=== PATIENT | female | born 1945 | race Caucasian/White ===

== ENCOUNTER 2024-05-01 13:15 | Emergency (ER) | payer MEDICARE, OTHER, SELFPAY ==
[2024-05-01] VITALS (14 sets, daily range): BP systolic 125–172; BP diastolic 58–82; PULSE 36–91; RESP 12–34; O2SAT 92–99; BMI 29.9
--- NOTE | 2024-05-01 13:51 | EKG_ITS ---
[facility] [address] [place] [address] Test Date: 2024-05-01 Pat Name: Thea Jc Department: [facility] Room: Gender: Female Biomedical Analytical Scientist: RICHIE : 1945 Requested By: Order Number: [id number] Reading MD: Deni Feliz Measurements Intervals [place] Rate: 57 P: [place]: QRS: 41 QRSD: 104 T: 9 QT: 444 QTc: 432 Interpretive Statements atrial fibrillation with slow ventricular response and PAC Nonspecific ST abnormalities No prior tracings Electronically Signed On 05-03-2024 17:55:10 PDT by Deni Feliz
--- NOTE | 2024-05-01 13:51 | DI.RAD.S_ITS ---
PROCEDURE: XR CHEST 1V INDICATIONS: chest pain TECHNIQUE: One view of the chest was acquired. COMPARISON: None. FINDINGS: Surgical changes and devices: Tendon anchors are overlying the right shoulder. Lungs and pleura: Lungs are clear. No pleural effusions or pneumothorax. Mediastinum: Mediastinal contours appear normal. Heart size is enlarged. Bones and chest wall: No suspicious bony lesions. Overlying soft tissues appear unremarkable. IMPRESSION: No acute pulmonary process. Dictated by: Paulette Archuleta M.D. on 05/01/2024 at 14:21 Approved by: Paulette Archuleta M.D. on 05/01/2024 at 14:22
[2024-05-01 14:15] LABS: Add Manual Diff / Slide Review NO; Basophils Absolute Auto 0 /uL (0-100); Basophils Percent Auto 0.4 % (0-2); Eosinophils Absolute Auto 0 /uL (0-450); Eosinophils Percent Auto 0.4 % (2-4); Hematocrit 44.7 % (36-46); Hemoglobin 15.1 g/dL (12.0-16.0); Lymphocytes Absolute Auto 1300 /uL (1100-4500); Lymphocytes Percent Auto 15.6 % (25-40); Mean Corpuscular HGB Conc 33.8 % (30-36); Mean Corpuscular Hemoglobin 30.5 PG (26-34); Mean Corpuscular Volume 90.1 fL (80-100); Monocytes Absolute Auto 900 /uL (0-900); Monocytes Percent Auto 11.4 % (3-14); Neutrophils Absolute Auto 6000 /uL (1500-7000); Neutrophils Percent Auto 72.2 % (50-75); Platelet Count 364 X10^3/uL (150-400); Red Blood Cell Count 4.96 X10^6/uL (4.0-5.2); Red Cell Distribution Width 14.4 % (11.6-14.8); White Blood Cell Count 8.3 X10^3/uL (4.5-11.0)
--- NOTE | 2024-05-01 14:16 | ED.WEAKNESS ---
HPI - Weakness General Chief complaint: Weakness Stated complaint: Fall, muscle weakness, shaking, slurred speech Time Seen by Provider: 05/01/24 14:11 History of Present Illness HPI Narrative: Patient is an 79-year-old female without any significant past medical history comes into the ED for evaluation of diffuse weakness as well as dizziness. States that today she was seated on the toilet was able to urinate and move her bowels attempted to stand up felt lightheaded dizzy had to sit back down onto the toilet lowered herself onto the floor did not strike her head not on any blood thinners no actual LOC. States that she was too weak to get up from that position therefore called the ambulance. Family at bedside states that patient does live at home alone, states that she had complained of similar symptoms a few days ago and never seek medical attention. Patient at this time is not complaining of any symptoms just feels a little ?weak. Daughter was also stating that she was thinking that the patient was slurring her speech when she 1st saw her this was earlier this morning, greater than 5 hours ago. Therefore patient does not meet tPA requirement. At time of initial evaluation patient NIH of 0 no focal deficits. Related Data Allergies Allergy/AdvReac Type Severity Reaction Status Date / Time Penicillins Allergy Severe Rash Verified 05/01/24 15:09 cephalexin Allergy Unknown Verified 05/01/24 15:09 diazepam Allergy Unknown Verified 05/01/24 15:09 esomeprazole Allergy Unknown Verified 05/01/24 15:09 lamotrigine Allergy Unknown Verified 05/01/24 15:09 lisinopril Allergy Unknown Verified 05/01/24 15:09 Review of Systems Review of Systems Narrative: General: Positive generalized weakness HEENT: Denies headache, eye drainage, eye irritation, head trauma, sore throat, voice change Cardiovascular: Denies any chest pain, palpitations, shortness of breath, tachycardia Respiratory: Denies any shortness of breath, cough, wheeze, stridor GI/: Denies any abdominal pain, nausea, vomiting, diarrhea, bright red blood per rectum, melanotic stools, urinary frequency, urinary retention, dysuria, hematuria MSK: Denies any joint pain, muscle pains, swelling Skin: Denies any rashes, lesions, discoloration Neuro: Positive lightheadedness, dizziness, Denies any headache, fainting, weakness Psych: Denies SI/HI Patient History Social History Smoking Status: Never smoker Smoking Status: Never smoker Substance Use Type: does not use Exam Narrative Exam Narrative: General: Cooperative, comfortable, well-developed, not in acute distress HEENT: Normocephalic, atraumatic, PERRLA, normal sclera, eyelids normal, Neck: Active full range of motion, atraumatic Chest: Normal to inspection, negative crepitus, no overlying erythema ecchymosis Respiratory: Normal respiratory effort, not in acute respiratory distress, clear to auscultation bilaterally negative cough, wheeze, tachypnea, rhonchi, rales Cardiology: Regular rate rhythm negative gallop, murmur, rubs GI/: Normal to inspection, soft, nonrigid, no tenderness to palpation, exam deferred MSK: Full range of active range of motion of all 4 extremities, atraumatic Skin: No rashes lesions noted Neuro: Alert awake oriented x3, moves all 4 extremities spontaneously, cranial nerves intact, able to answer all questions appropriately follows commands appropriately, NIH of 0 focal deficits Psych: Cooperative, negative suicidal or homicidal ideations Initial Vital Signs Initial Vital Signs: Vital Signs Pulse Rate 66 05/01/24 13:32 Respiratory Rate 16 05/01/24 13:32 Blood Pressure 172/72 H 05/01/24 13:32 Pulse Oximetry 97 05/01/24 13:32 Oxygen Delivery Method Room Air 05/01/24 13:32 Course Orders Ordered: ED Orders 05/01/24 13:51 XR chest 1V Stat EKG-12 Lead Stat 05/01/24 14:04 Complete Blood Count AUTO DIFF Stat Comprehensive Metabolic Panel Stat Lipase Stat Magnesium Stat NT-proBNP (BNP-Adult 18+) Stat PTT Partial Thromboplastin Justin Stat Prothrombin Time INR Stat TSH [Thyroid Stimulating Hormone] Stat Troponin & CK Cardiac Panel Stat 05/01/24 14:17 CT angio head and neck Stat CT head/brain wo con Stat 05/01/24 14:43 EKG-12 Lead Stat 05/01/24 14:45 EKG-12 Lead Stat 05/01/24 15:20 Lactate (Lactic Acid) Stat Discontinued Medications Sodium Chloride (Normal Saline 0.9%) 1,000 mls @ 500 mls/hr IV BOLUS ONE Stop: 05/01/24 16:16 Last Admin: 05/01/24 15:38 Dose: 500 mls/hr Documented By: DELORES Magnesium Sulfate (Magnesium Sulfate) 2 gm in 50 mls @ 150 mls/hr IV NOW ONE Stop: 05/01/24 14:50 Last Infusion: 05/01/24 15:36 Dose: Infused Documented By: DELORES Co-signed By: NEYDA Admin: 05/01/24 15:02 Dose: 150 mls/hr Documented By: JEAN Co-signed By: DELORES Vital Signs Vital signs: Vital Signs - 8 hr 05/01/24 13:32 05/01/24 14:03 05/01/24 14:30 Pulse Rate 66 91 H 42 L Respiratory Rate 16 27 H 26 H Blood Pressure 172/72 H 154/74 H 125/58 L Pulse Oximetry 97 99 98 Oxygen Delivery Method Room Air 05/01/24 15:08 05/01/24 15:30 05/01/24 15:41 Pulse Rate 51 L 49 L 52 L Respiratory Rate 16 22 Blood Pressure 132/59 L Pulse Oximetry 98 98 97 Oxygen Delivery Method Room Air Room Air 05/01/24 15:41 05/01/24 16:00 05/01/24 16:00 Pulse Rate 36 L Respiratory Rate 20 Blood Pressure 132/63 126/62 Pulse Oximetry 95 Oxygen Delivery Method 05/01/24 16:15 05/01/24 16:25 05/01/24 16:25 Pulse Rate 39 L 49 L Respiratory Rate 15 Blood Pressure 141/65 H Pulse Oximetry 97 Oxygen Delivery Method 05/01/24 16:30 05/01/24 16:30 05/01/24 17:00 Pulse Rate 46 L 59 L Respiratory Rate 16 34 H Blood Pressure 157/70 H Pulse Oximetry 98 96 Oxygen Delivery Method 05/01/24 17:00 Pulse Rate Respiratory Rate Blood Pressure 142/82 H Pulse Oximetry Oxygen Delivery Method MDM - Weakness Differential Diagnosis Differential diagnosis: Likely acute myocardial infarction, hypothyroidism, sepsis, dehydration and other (Arrhythmia) Lab Data 05/01/24 14:04 05/01/24 14:04 Labs: Lab Results 05/01/24 05/01/24 Range/Units 14:04 15:20 WBC 8.3 (4.5-11.0) X10^3/uL RBC 4.96 (4.0-5.2) X10^6/uL Hgb 15.1 (12.0-16.0) g/dL Hct 44.7 (36-46) % MCV 90.1 (80-100) fL MCH 30.5 (26-34) PG MCHC 33.8 (30-36) % RDW 14.4 (11.6-14.8) % Plt Count 364 (150-400) X10^3/uL Neut % (Auto) 72.2 (50-75) % Lymph % (Auto) 15.6 L (25-40) % Bowie % (Auto) 11.4 (3-14) % Eos % (Auto) 0.4 L (2-4) % Baso % (Auto) 0.4 (0-2) % Neut # (Auto) 6000 (9483-9808) /uL Lymph # (Auto) 1300 (1271-9331) /uL Bowie # (Auto) 900 (0-900) /uL Eos # (Auto) 0 (0-450) /uL Baso # (Auto) 0 (0-100) /uL PT 10.4 (9.4-12.5) SECONDS INR 0.9 (0.9-1.3) APTT 42 H (25.1-36.5) SECONDS Sodium 138 (137-145) mmol/L Potassium 4.1 (3.4-5.1) mmol/L Chloride 103 (98-107) mmol/L Carbon Dioxide 26 (22-32) mmol/L BUN 16 (7-17) mg/dL Creatinine 0.76 (0.52-1.04) mg/dL Estimated GFR > 60 (>60) mL/min BUN/Creatinine Ratio 21.1 (6-22) Glucose 105 (80-110) mg/dL Lactate 1.5 (0.7-2.1) mmol/L Calcium 9.8 (8.4-10.2) mg/dL Magnesium 2.2 (1.6-2.3) mg/dL Total Bilirubin 0.4 (0.2-1.3) mg/dL AST 35 (14-36) IU/L ALT 24 (<35) IU/L Alkaline Phosphatase 67 (38-126) U/L Total Creatine Kinase 135 (30-135) U/L Troponin I 0.012 (0.01-0.034) ng/mL NT-Pro-B Natriuret Pep 4210 H (<450) pg/mL Total Protein 7.1 (6.3-8.2) g/dL Albumin 4.2 (3.5-5.0) g/dL Globulin 2.9 (1.7-4.1) g/dL Albumin/Globulin Ratio 1.4 (1.0-2.8) Lipase 46 (23-300) U/L TSH 1.56 (0.47-4.68) uIU/mL Urine Dip Bedside Urine Glucose Negative Bedside Urine Bilirubin - Negative Bedside Urine Ketone - Negative Urine Specific [place] 1.010 Bedside Urine Occult Blood - Negative Bedside Urine pH 6.0 Bedside Urine Protein - Negative Bedside Urine Urobilinogen - Negative Bedside Urine Nitrite - Negative Bedside Urine Leukocytes - Negative Esterase Imaging Data Chest x-ray: Radiologist Impression: [place] [address] XRay Report Signed Patient: Thea Jc MR#: [id number] : 1945 Acct:[id number] Age/Sex: 79 / F Date of Service: 05/01/24 Loc: ED Accession Number: [id number] Procedure: XR chest 1V Ordering Provider: Deni Mcdaniels D.O. PROCEDURE: XR CHEST 1V INDICATIONS: chest pain TECHNIQUE: One view of the chest was acquired. COMPARISON: None. FINDINGS: Surgical changes and devices: Tendon anchors are overlying the right shoulder. Lungs and pleura: Lungs are clear. No pleural effusions or pneumothorax. Mediastinum: Mediastinal contours appear normal. Heart size is enlarged. Bones and chest wall: No suspicious bony lesions. Overlying soft tissues appear unremarkable. IMPRESSION: No acute pulmonary process. CT scan - head: Radiologist Impression: [place] [address] CT Scan Report Signed Patient: Thea Jc MR#: [id number] : 1945 Acct:[id number] Age/Sex: 79 / F Date of Service: 05/01/24 Loc: ED Accession Number: [id number] Procedure: CT head/brain wo con Ordering Provider: Deni Mcdaniels D.O. PROCEDURE: CT HEAD/BRAIN WO CON INDICATIONS: light headed / dizzy TECHNIQUE: Noncontrast 4.5 mm thick angled axial sections acquired from the foramen magnum to the vertex, with coronal and sagittal reformats. For radiation dose reduction, the following was used: automated exposure control, adjustment of mA and/or kV according to patient size. COMPARISON: None. FINDINGS: Image quality: Diagnostic. CSF spaces: Basal cisterns are patent. No extra-axial fluid collections. The ventricles are symmetric in size and shape. Brain: No intracranial bleeds or masses. There is cerebral volume loss for age, with resultant ventricular and sulcal prominence. There are periventricular and deep white matter chronic small vessel ischemic changes. There is intracranial internal carotid artery atherosclerosis. Skull and face: Calvarium and visualized facial bones appear intact, without suspicious lesions. Sinuses: Visualized sinuses and mastoids are clear. IMPRESSION: 1. No acute intracranial process. 2. Moderate atrophy and chronic microvascular ischemic changes. CTA - brain/neck: Radiologist Impression: PROCEDURE: CT ANGIO HEAD AND NECK INDICATIONS: light headed / dizzy TECHNIQUE: After the administration of intravenous contrast, 1 mm thick sections acquired from the aortic arch through the [place] of [place]. 3-dimensional rpfysix-ugwaitiei-rgunrqecha (MIP) and/or volume rendering reformats were acquired of the central intracranial vasculature and neck separately. For radiation dose reduction, the following was used: automated exposure control, adjustment of mA and/or kV according to patient size. COMPARISON: [facility], CT, CT HEAD/BRAIN WO CON, 05/01/2024, 14:53. FINDINGS: Image quality: Diagnostic. BRAIN: See separately dictated CT brain report of 05/01/2024. HEAD CT ANGIOGRAPHY: Anterior circulation: Intracranial internal carotid arteries are normal in size and flow. The flow within the paired anterior cerebral arteries is normal and symmetric. The flow within the middle cerebral arteries is normal and symmetric. The anterior communicating artery is seen. No aneurysms are seen. Posterior circulation: Vertebral arteries are codominant. Visualized portions of the vertebral arteries demonstrate normal caliber, and join to form a normal appearing basilar artery. Flow within the posterior cerebral arteries is normal and symmetric. No aneurysms are seen. NECK CT ANGIOGRAPHY: Carotid system: The great vessels demonstrate a conventional anatomy as they arise from the aortic arch. The origins of the common carotid arteries appear patent. The common carotid arteries demonstrate normal caliber and courses. The bifurcation regions are both widely patent. The internal carotid arteries demonstrate normal calibers and courses. Posterior circulation: The origins of the vertebral arteries both appear widely patent. The more superior extracranial portions of both vertebral arteries also demonstrate normal courses and calibers. They join to form a normal appearing basilar artery. Soft tissues: Visualized neck soft tissues demonstrate no suspicious abnormalities. Bones: No suspicious bony lesions. Visualized cervical spine appears normally aligned. IMPRESSION: No significant intracranial arterial abnormality is seen. No significant abnormality is seen within the arteries of the neck. MDM Narrative Medical decision making narrative: Patient is an 79-year-old female with no significant past medical history presents to the ED for multiple complaints. States that she has been feeling lightheaded dizzy over the past few days states that it is happening whenever she is moving/changing positions. The last time was earlier this morning when she was sitting on the toilet stood up felt lightheaded dizzy did not fall was able to sit down onto the floor. Daughter states that when she arrived she noticed that the patient seemed a little confused was worried that she might have low blood sugars despite no history of diabetes give her some orange juice and states that the patient was with resolved symptoms. Patient at time of initial evaluation NIH of 0 no focal deficits feeling just ?weak.Lab work is remarkable for an elevated BNP of 4210, however patient clinically not in fluid overload, given patient bradycardic and normotensive at this time we will hold off on any Lasix/diuresis. 1431: Reviewed patient's EKG appears to be possible AFib with PVC bradycardic or possible third-degree, given patient's symptomatic with weakness and presyncopal symptoms will reach out to Cardiology, 2 g Mag ordered 1500: Discussed case with Dr. Britton of cardiology who personally reviewed the EKG, states that it is a junction rythm, would not state that it is a third-degree heart block or atrial fibrillation, states that given patient's symptoms should be admitted /transferred to a hospital with electrophysiology for possible pacemaker placement, does not recommend any additional interventions at this time. 1727: Had a discussion with Dr. Hoffman, clothing pattern preparer at [facility] who reviewed the case and agrees about need for necessity to transfer for cardiac evaluation, echo and possible pacemaker. States to call the hospitalist for admission 1750: Had a discussion with Dr. Sanchez, hospitalist at [facility] who accepts the admission Discharge Plan Departure Patient Disposition: [facility] Clinical Impression: Symptomatic bradycardia, Elevated brain natriuretic peptide (BNP) level, Syncope Referrals: Miscellaneous,DoctorMD [Primary Care Provider] -
[2024-05-01 14:20] LABS: INR 0.9 (0.9-1.3); Prothrombin Time 10.4 SECONDS (9.4-12.5)
[2024-05-01 14:23] LABS: PTT Partial Thromboplastin Tim 42 SECONDS (25.1-36.5)
[2024-05-01 14:27] LABS: Alanine Aminotransferase 24 IU/L (<35); Albumin 4.2 g/dL (3.5-5.0); Albumin Globulin Ratio 1.4 (1.0-2.8); Alkaline Phosphatase 67 U/L (38-126); Aspartate Aminotransferase 35 IU/L (14-36); BUN Creatinine Ratio 21.1 (6-22); Bilirubin Total 0.4 mg/dL (0.2-1.3); Blood Urea Nitrogen 16 mg/dL (7-17); Calcium 9.8 mg/dL (8.4-10.2); Carbon Dioxide 26 mmol/L (22-32); Chloride 103 mmol/L (98-107); Creatine Kinase 135 U/L (30-135); Estimated Glomerular Filt Rate > 60 mL/min (>60); Globulin 2.9 g/dL (1.7-4.1); Glucose 105 mg/dL (80-110); HEMOLYSIS < 15 (0-50); Lipase 46 U/L (23-300); Magnesium 2.2 mg/dL (1.6-2.3); Potassium 4.1 mmol/L (3.4-5.1); Sodium 138 mmol/L (137-145); Total Protein 7.1 g/dL (6.3-8.2)
[2024-05-01 14:39] LABS: NT-proBNP (BNP-Adult 18+) 4210 pg/mL (<450); Troponin I 0.012 ng/mL (0.01-0.034)
--- NOTE | 2024-05-01 14:43 | EKG_ITS ---
[address] [address] Test Date: 2024-05-01 Pat Name: Thea Jc Department: Room: Gender: Female Kettle Hand: JUAN CARLOS MATTHEWS : 1945 Requested By: Order Number: [id number] Reading MD: Deni Feliz Measurements Intervals [place] Rate: 42 P: [place]: QRS: 36 QRSD: 94 T: -7 QT: 448 QTc: 374 Interpretive Statements Junctional bradycardia ST & T wave abnormality, consider inferior ischemia Electronically Signed On 05-03-2024 17:57:22 PDT by Deni Feliz
--- NOTE | 2024-05-01 14:45 | EKG_ITS ---
[address] [address] Test Date: 2024-05-01 Pat Name: Thea Jc Department: Room: Gender: Female Web Editor: JUAN CARLOS MATTHEWS : 1945 Requested By: Order Number: [id number] Reading MD: Deni Feliz Measurements Intervals [place] Rate: 41 P: [place]: QRS: 40 QRSD: 96 T: 9 QT: 458 QTc: 377 Interpretive Statements Junctional bradycardia Electronically Signed On 05-03-2024 17:57:31 PDT by Deni Feliz
[2024-05-01] MEDS: MAGNESIUM SULFATE 2 GM/50 ML PIGGYBACK IV (15:02)
[2024-05-01 15:38] LABS: Lactate (Lactic Acid) 1.5 mmol/L (0.7-2.1)
[2024-05-01] MEDS: SODIUM CHLORIDE 0.9% 1,000 ML 500 ML IV (15:38)
--- NOTE | 2024-05-01 15:50 | PC.NURSE ---
Purwick cath placed on patient
--- NOTE | 2024-05-01 15:53 | PC.NURSE ---
pt took her lamotrigine 150 mg tabs x 2.
[2024-05-01 16:10] LABS: Thyroid Stimulating Hormone 1.56 uIU/mL (0.47-4.68)
--- NOTE | 2024-05-01 17:59 | PC.NURSE ---
Kaitlyn Cox (friend) main point of contact for patient. [phone]
--- NOTE | 2024-05-01 18:50 | PC.NURSE ---
Report to Chevy DEL RIO. Attempted report to overlake, will call back
--- NOTE | 2024-05-01 21:50 | PC.NURSE ---
this RN gave report to Sandrita at [facility].
== END 2024-05-01 18:50 | disposition short-term general hospital (02) ==
PROVIDERS: Emergency Provider Student in an Organized Health Care Education/Training Program
DX: R00.1 Bradycardia, unspecified (principal); R79.89 Other specified abnormal findings of blood chemistry; R55 Syncope and collapse; R07.9 Chest pain, unspecified; R47.81 Slurred speech
CPT/HCPCS: 36415; 70450; 70496; 70498; 71045; 80053; 81003; 82550; 83605; 83690; 83735; 83880; 84443; 84484; 85025; 85610; 85730; 93005; 96360; 96361; 99285; J3475; Q9967

== ENCOUNTER 2024-05-06 18:55 | Emergency (ER) | payer MEDICARE, OTHER, SELFPAY ==
[2024-05-06] VITALS (13 sets, daily range): BP systolic 123–201; BP diastolic 58–89; PULSE 60–62; RESP 14–25; TEMP 36.4; O2SAT 93–97; BMI 30.1
--- NOTE | 2024-05-06 19:09 | DI.RAD.S_ITS ---
PROCEDURE: XR CHEST 1V INDICATIONS: fall, pacemaker placement TECHNIQUE: One view of the chest was acquired. COMPARISON: [facility], , XR CHEST 1V, 05/01/2024, 13:50. FINDINGS: Surgical changes and devices: Left chest wall pacemaker. Lungs and pleura: Lungs are clear. No pleural effusions or pneumothorax. Mediastinum: Mediastinal contours appear normal. Heart size is enlarged. Bones and chest wall: No suspicious bony lesions. Overlying soft tissues appear unremarkable. IMPRESSION: Left chest wall pacemaker. No acute cardiopulmonary abnormality is seen. Dictated by: Chepe Beckford M.D. on 05/06/2024 at 19:56 Approved by: Chepe Beckford M.D. on 05/06/2024 at 19:57
--- NOTE | 2024-05-06 19:21 | EKG_ITS ---
[address] [address] Test Date: 2024-05-06 Pat Name: Thea Jc Department: [facility] Room: Gender: Female Auction Block Clerk: : 1945 Requested By: Order Number: [id number] Reading MD: Kenny Burris Measurements Intervals [place] Rate: 60 P: -13 GA: 190 QRS: 19 QRSD: 96 T: 23 QT: 422 QTc: 422 Interpretive Statements Atrial-paced rhythm Electronically Signed On 05-08-2024 15:48:57 PDT by Kenny Burris
--- NOTE | 2024-05-06 19:23 | EKG_ITS ---
[address] [address] Test Date: 2024-05-06 Pat Name: Thea Jc Department: [facility] Room: Gender: Female Mail Order Clerk: : 1945 Requested By: Order Number: [id number] Reading MD: Kenny Burris Measurements Intervals [place] Rate: 61 P: 12 TN: 194 QRS: 17 QRSD: 94 T: 27 QT: 424 QTc: 426 Interpretive Statements Atrial-paced rhythm Electronically Signed On 05-08-2024 15:49:03 PDT by Kenny Burris
--- NOTE | 2024-05-06 19:32 | DI.CT.S_ITS ---
PROCEDURE: CT HEAD/BRAIN WO CON INDICATIONS: GLF, dizzy, age 80s TECHNIQUE: Noncontrast 4.5 mm thick angled axial sections acquired from the foramen magnum to the vertex, with coronal and sagittal reformats. For radiation dose reduction, the following was used: automated exposure control, adjustment of mA and/or kV according to patient size. COMPARISON: [facility], CT, CT HEAD/BRAIN WO CON, 05/01/2024, 14:53. FINDINGS: Image quality: Diagnostic. CSF spaces: Basal cisterns are patent. No extra-axial fluid collections. The ventricles are symmetric in size and shape. Brain: Small focus of encephalomalacia within the right occipital region is stable. No intracranial bleeds or masses. There is cerebral volume loss for age, with resultant ventricular and sulcal prominence. There are periventricular and deep white matter chronic small vessel ischemic changes. There is intracranial internal carotid artery atherosclerosis. Skull and face: Calvarium and visualized facial bones appear intact, without suspicious lesions. Sinuses: Moderate right maxillary sinus mucosal thickening. Visualized sinuses and mastoids are otherwise clear. IMPRESSION: No acute intracranial pathology. Moderate right maxillary sinus mucosal disease is new compared to recent prior. Dictated by: Chepe Beckford M.D. on 05/06/2024 at 19:57 Approved by: Chepe Beckford M.D. on 05/06/2024 at 19:59
--- NOTE | 2024-05-06 19:47 | ED_ITS ---
HPI - Dizziness General Chief Complaint: Dizziness Stated Complaint: GLF, dizziness, has pacemaker Time Seen by Provider: 05/06/24 19:32 History of Present Illness HPI Narrative: 79-year-old female status post recent pacemaker placement for symptomatic bradycardia on 05/02/24 at [facility], ongoing dizziness for which she takes meclizine, was given her meclizine 50 mg usual dose at about 5p.m. this evening, feeling dizzy, brought for further evaluation. She denies chest pain or shortness of breath. She denies focal weakness to face arm or leg. She feels less dizzy after her meclizine dose but still some some dizziness, that feels like her usual old dizziness. Related Data Previous Rx's Medication Instructions Recorded doxycycline hyclate 100 mg capsule 100 mg PO BID #20 caps 05/06/24 Allergies Allergy/AdvReac Type Severity Reaction Status Date / Time Penicillins Allergy Severe Rash Verified 05/01/24 15:09 cephalexin Allergy Unknown Verified 05/01/24 15:09 diazepam Allergy Unknown Verified 05/01/24 15:09 esomeprazole Allergy Unknown Verified 05/01/24 15:09 lamotrigine Allergy Unknown Verified 05/01/24 15:09 lisinopril Allergy Unknown Verified 05/01/24 15:09 Review of Systems Review of Systems Narrative: see HPI Patient History Social History Smoking Status: Never smoker Smoking Status: Never smoker Substance Use Type: does not use Exam Narrative Exam Narrative: GENERAL: Well-developed patient, in mild distress. HEAD: Atraumatic. Normocephalic. EYES: Pupils equal round and reactive. Extraocular motions intact. No scleral icterus. No injection or drainage. ENT: Nose without bleeding, purulent drainage. Throat without erythema, tonsillar hypertrophy or exudate. Airway patent. NECK: Trachea midline. Non tender CARDIOVASCULAR: Regular rate and rhythm without murmurs, gallops, or rubs. RESPIRATORY: Clear to auscultation. Breath sounds equal bilaterally. No wheezes, rales, or rhonchi. Left upper anterior chest dressing over palpable recent pacemaker site, no redness to skin, no tenderness or fluctuance or crepitance on palpation through dressing GASTROINTESTINAL: Abdomen soft, non-tender, nondistended. EXTREMITIES: No edema or joint tenderness. BACK: Nontender without deformity or crepitance. No flank tenderness. NEURO: AOx3. Motor functions grossly nonfocal SKIN: No rash or erythema of visible areas Initial Vital Signs Initial Vital Signs: Vital Signs Respiratory Rate 19 05/06/24 19:06 Course Orders Ordered: ED Orders 05/06/24 19:09 XR chest 1V Stat 05/06/24 19:10 EKG-12 Lead Stat 05/06/24 19:32 CT head/brain wo con Stat 05/06/24 19:46 EKG-12 Lead Stat 05/06/24 20:03 Complete Blood Count AUTO DIFF Stat Comprehensive Metabolic Panel Stat Lipase Stat Troponin & CK Cardiac Panel Stat 05/06/24 22:34 Troponin I Stat Discontinued Medications Doxycycline Hyclate (Doxycycline Hyclate 100 Mg Tablet) 100 mg PO NOW ONE Stop: 05/06/24 22:32 Last Admin: 05/06/24 23:26 Dose: 100 mg Documented By: JEAN Vital Signs Vital signs: Vital Signs - 8 hr 05/06/24 19:06 05/06/24 19:08 05/06/24 19:08 Temperature Pulse Rate 60 Respiratory Rate 19 16 Blood Pressure 201/89 H Pulse Oximetry 96 Oxygen Delivery Method 05/06/24 19:10 05/06/24 19:30 05/06/24 19:31 Temperature 97.5 F L Pulse Rate 60 62 60 Respiratory Rate 20 24 18 Blood Pressure 201/89 H Pulse Oximetry 96 96 96 Oxygen Delivery Method Room Air 05/06/24 19:31 05/06/24 20:00 05/06/24 20:23 Temperature Pulse Rate 60 60 Respiratory Rate 25 H 23 Blood Pressure 167/74 H 176/84 H Pulse Oximetry 96 96 Oxygen Delivery Method 05/06/24 20:30 05/06/24 21:01 05/06/24 21:31 Temperature Pulse Rate 60 60 61 Respiratory Rate 17 14 23 Blood Pressure 171/89 H 123/58 L 184/83 H Pulse Oximetry 95 93 97 Oxygen Delivery Method 05/06/24 22:01 05/06/24 22:30 05/06/24 23:28 Temperature Pulse Rate 60 60 60 Respiratory Rate 18 15 25 H Blood Pressure 163/75 H 153/70 H 174/77 H Pulse Oximetry 96 94 95 Oxygen Delivery Method Room Air Room Air MDM - Dizziness Lab Data Attestation: I reviewed the patient's lab results. Lab results narrative: CBC unremarkable, CMP unremarkable, initial troponin negative. 05/06/24 20:03 05/06/24 20:03 Labs: Lab Results 05/06/24 05/06/24 Range/Units 20:03 22:34 WBC 6.9 (4.5-11.0) X10^3/uL RBC 4.79 (4.0-5.2) X10^6/uL Hgb 14.4 (12.0-16.0) g/dL Hct 42.5 (36-46) % MCV 88.9 (80-100) fL MCH 30.1 (26-34) PG MCHC 33.9 (30-36) % RDW 14.6 (11.6-14.8) % Plt Count 314 (150-400) X10^3/uL Neut % (Auto) 68.3 (50-75) % Lymph % (Auto) 16.8 L (25-40) % [place] % (Auto) 13.0 (3-14) % Eos % (Auto) 1.3 L (2-4) % Baso % (Auto) 0.6 (0-2) % Neut # (Auto) 4700 (2560-5932) /uL Lymph # (Auto) 1200 (2472-7093) /uL [place] # (Auto) 900 (0-900) /uL Eos # (Auto) 100 (0-450) /uL Baso # (Auto) 0 (0-100) /uL Sodium 137 (137-145) mmol/L Potassium 3.9 (3.4-5.1) mmol/L Chloride 104 (98-107) mmol/L Carbon Dioxide 24 (22-32) mmol/L BUN 20 H (7-17) mg/dL Creatinine 0.76 (0.52-1.04) mg/dL Estimated GFR > 60 (>60) mL/min BUN/Creatinine Ratio 26.3 H (6-22) Glucose 104 (80-110) mg/dL Calcium 9.9 (8.4-10.2) mg/dL Total Bilirubin 0.6 (0.2-1.3) mg/dL AST 59 H (14-36) IU/L ALT 31 (<35) IU/L Alkaline Phosphatase 80 (38-126) U/L Total Creatine Kinase 76 (30-135) U/L Troponin I < 0.012 < 0.012 (0.01-0.034) ng/mL Total Protein 7.3 (6.3-8.2) g/dL Albumin 4.4 (3.5-5.0) g/dL Globulin 2.9 (1.7-4.1) g/dL Albumin/Globulin Ratio 1.5 (1.0-2.8) Lipase 47 (23-300) U/L Imaging Data Chest x-ray: Radiologist's Impression: [address] [address] XRay Report Signed Patient: Thea Jc MR#: [id number] : 1945 Acct:[id number] Age/Sex: 79 / F Date of Service: 05/06/24 Loc: ED Accession Number: [id number] Procedure: XR chest 1V Ordering Provider: Clifford Maddox MD PROCEDURE: XR CHEST 1V INDICATIONS: fall, pacemaker placement TECHNIQUE: One view of the chest was acquired. COMPARISON: [facility], , XR CHEST 1V, 05/01/2024, 13:50. FINDINGS: Surgical changes and devices: Left chest wall pacemaker. Lungs and pleura: Lungs are clear. No pleural effusions or pneumothorax. Mediastinum: Mediastinal contours appear normal. Heart size is enlarged. Bones and chest wall: No suspicious bony lesions. Overlying soft tissues appear unremarkable. IMPRESSION: Left chest wall pacemaker. No acute cardiopulmonary abnormality is seen. Dictated by: Chepe Beckford M.D. on 05/06/2024 at 19:56 Approved by: Chepe Beckford M.D. on 05/06/2024 at 19:57 CT scan - head: Radiologist's Impression: [address] [address] [address] Scan Report Signed Patient: Thea Jc MR#: [id number] : 1945 Acct:[id number] Age/Sex: 79 / F Date of Service: 05/06/24 Loc: ED Accession Number: [id number] Procedure: CT head/brain wo con Ordering Provider: Clifford Maddox MD PROCEDURE: CT HEAD/BRAIN WO CON INDICATIONS: GLF, dizzy, age 80s TECHNIQUE: Noncontrast 4.5 mm thick angled axial sections acquired from the foramen magnum to the vertex, with coronal and sagittal reformats. For radiation dose reduction, the following was used: automated exposure control, adjustment of mA and/or kV according to patient size. COMPARISON: [facility], CT, CT HEAD/BRAIN WO CON, 05/01/2024, 14:53. FINDINGS: Image quality: Diagnostic. CSF spaces: Basal cisterns are patent. No extra-axial fluid collections. The ventricles are symmetric in size and shape. Brain: Small focus of encephalomalacia within the right occipital region is stable. No intracranial bleeds or masses. There is cerebral volume loss for age, with resultant ventricular and sulcal prominence. There are periventricular and deep white matter chronic small vessel ischemic changes. There is intracranial internal carotid artery atherosclerosis. Skull and face: Calvarium and visualized facial bones appear intact, without suspicious lesions. Sinuses: Moderate right maxillary sinus mucosal thickening. Visualized sinuses and mastoids are otherwise clear. IMPRESSION: No acute intracranial pathology. Moderate right maxillary sinus mucosal disease is new compared to recent prior. Dictated by: Chepe Beckford M.D. on 05/06/2024 at 19:57 Approved by: Chepe Beckford M.D. on 05/06/2024 at 19:59 ECG Data Attestation: I personally reviewed and interpreted this ECG as follows: Interpretation: Normal sinus rhythm with rate of 61, no obvious ST segment elevation or depression changes. Some limitation by patient's tremor. AZ 194, QRS 94, QTC 426. MDM Narrative Medical decision making narrative: 79-year-old female with dizziness, status post recent pacemaker placement [facility] on 05/02/2024, she does not know what type it is, does not have a postprocedure card to reference. No electrical shocking sensation. No fevers or chills. She has ongoing dizziness for which she takes meclizine, took dose at 5:00 p.m., less dizzy now but still some dizziness component. No focal numbness or weakness symptoms. DDx consider pacer malfunction, cardia, tachycardia, ACS, dehydration, UTI, electrolyte disorder, anemia, stroke, UTI, chronic dizziness with partial response to usual meclizine, other. She did have a fall that was apparently was broken with her hands, no direct blow to her head. CT head, EKG, labs pending. Further monitor for response to pre-hospital dose of meclizine. Keep NPO for now. Review of records, discharge summary from [facility]. Date of admission 05/01/2024, date of discharge 05/05/2024. Patient had lightheadedness and near- syncope symptoms, some dysarthria described as slurred speech, CT head noncontrast study at that time reportedly negative, CT angiogram head and neck vessels reportedly negative, noted to have low heart rate readings 30 beats per minute, suspected symptomatic bradycardia, was referred for possible pacemaker placement. This procedure was performed on 05/02/2024 at [facility]. Echo reportedly unremarkable. Blood pressure controlled unusual regimen of amlodipine and MAGDA inhibitor medications. History of seizure disorder, for which she apparently takes monotherapy lamotrigine, no new changes in medication, still taking 300 mg t.i.d., followed by neurologist Dr. Fernandez at [facility] in [place]. History of cervical spine neck fracture 04/15/2023 after a fall, cervical x-ray that hospitalization negative. Screening EKG here shows sinus rhythm, limited by tremor, however no obvious pacer spikes. We will attempt pacer interrogation. CBC unremarkable, CMP unremarkable, chest x-ray shows left anterior chest pacemaker with normal coursing wire, see radiology reports. Troponin negative. We will repeat interval troponin. [facility] [employer] [facility] pacer interrogation report, no ectopic events, some rhythms atrial paced, some ventricularly paced, no atrial tachycardia or atrial flutter events. See report. Interval repeat troponin negative. CT head study tonight showed right maxillary sinus thickening, possible infection, change from prior comparison study. See radiology report. History of penicillin and cephalosporin allergies. Oral doxycycline dose now, prescription for further course of the antibiotic doxycycline sent to her pharmacy. Continue taking meclizine, it seems to have kicked in, chronic/recurrent dizziness noted. Seems unrelated to her cardiac/bradycardic recent problems, seems paced with adequate heart rate on paced rhythms interrogation results. 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 Further antibiotics advised for possible acute sinusitis maxillary changes on imaging. Symptoms seemed to be improving with her usual meclizine evening dose, continue current medications including meclizine. Follow up with rotary rig engine operator as planned. Return precautions discussed Discharge Plan Departure Patient Disposition: Home Clinical Impression: Dizziness, Sinusitis, acute, maxillary, History of pacemaker Activity Restrictions/Additional Instructions: Recent pacemaker placement for symptomatic bradycardia, ongoing dizziness that is usually responsive to meclizine, improved dizziness symptoms having taken meclizine dose of proximally 5:00 p.m. Recent ground level fall stopped by arms, no head blow. CT head study tonight without obvious stroke or injury patterns, however right-sided new appearing sinus infection changes noted by Radiology report. History of allergy to penicillins and cephalosporin antibiotics, 1st dose of oral doxycycline antibiotic tonight, prescription course sent to your pharmacy. EKG and serial blood tests not suggestive of heart problems at this time. Pacer interrogation reassuring with paced rhythm noted, no ectopic beats or abnormal findings obvious by [employer] interrogation report. Continue taking your meclizine. Recheck with your regular doctor early next week, return to this/nearest emergency department for any change worsening symptoms or any concerns prior Prescriptions: New doxycycline hyclate 100 mg capsule 100 mg PO BID Qty: 20 0RF Referrals: Miscellaneous,MD Clarissa [Primary Care Provider] - Stand Alone Forms: Patient Portal/API
[2024-05-06 20:12] LABS: Add Manual Diff / Slide Review NO; Basophils Absolute Auto 0 /uL (0-100); Basophils Percent Auto 0.6 % (0-2); Eosinophils Absolute Auto 100 /uL (0-450); Eosinophils Percent Auto 1.3 % (2-4); Hematocrit 42.5 % (36-46); Hemoglobin 14.4 g/dL (12.0-16.0); Lymphocytes Absolute Auto 1200 /uL (1100-4500); Lymphocytes Percent Auto 16.8 % (25-40); Mean Corpuscular HGB Conc 33.9 % (30-36); Mean Corpuscular Hemoglobin 30.1 PG (26-34); Mean Corpuscular Volume 88.9 fL (80-100); Monocytes Absolute Auto 900 /uL (0-900); Neutrophils Absolute Auto 4700 /uL (1500-7000); Neutrophils Percent Auto 68.3 % (50-75); Platelet Count 314 X10^3/uL (150-400); Red Blood Cell Count 4.79 X10^6/uL (4.0-5.2); Red Cell Distribution Width 14.6 % (11.6-14.8); White Blood Cell Count 6.9 X10^3/uL (4.5-11.0)
[2024-05-06 20:22] LABS: Alanine Aminotransferase 31 IU/L (<35); Albumin 4.4 g/dL (3.5-5.0); Albumin Globulin Ratio 1.5 (1.0-2.8); Alkaline Phosphatase 80 U/L (38-126); Aspartate Aminotransferase 59 IU/L (14-36); BUN Creatinine Ratio 26.3 (6-22); Bilirubin Total 0.6 mg/dL (0.2-1.3); Blood Urea Nitrogen 20 mg/dL (7-17); Calcium 9.9 mg/dL (8.4-10.2); Carbon Dioxide 24 mmol/L (22-32); Chloride 104 mmol/L (98-107); Creatine Kinase 76 U/L (30-135); Estimated Glomerular Filt Rate > 60 mL/min (>60); Globulin 2.9 g/dL (1.7-4.1); Glucose 104 mg/dL (80-110); HEMOLYSIS < 15 (0-50); Lipase 47 U/L (23-300); Potassium 3.9 mmol/L (3.4-5.1); Sodium 137 mmol/L (137-145); Total Protein 7.3 g/dL (6.3-8.2)
[2024-05-06 20:34] LABS: Troponin I < 0.012 ng/mL (0.01-0.034)
[2024-05-06 23:06] LABS: Troponin I < 0.012 ng/mL (0.01-0.034)
[2024-05-06] MEDS: DOXYCYCLINE HYCLATE 100 MG TABLET PO (23:26)
== END 2024-05-06 23:42 | disposition home or self-care (01) ==
PROVIDERS: Emergency Provider Emergency Medicine
DX: R42 Dizziness and giddiness (principal); J01.00 Acute maxillary sinusitis, unspecified; Z95.0 Presence of cardiac pacemaker; W18.30XA Fall on same level, unspecified, initial encounter
CPT/HCPCS: 36415; 70450; 71045; 80053; 82550; 83690; 84484; 85025; 93005; 99284

== ENCOUNTER 2024-05-07 19:35 | Inpatient (IN) | payer MEDICARE, OTHER, SELFPAY ==
[2024-05-07] VITALS (11 sets, daily range): BP systolic 131–155; BP diastolic 60–74; PULSE 60–66; RESP 12–31; TEMP 36.1; O2SAT 94–97
--- NOTE | 2024-05-07 19:46 | ED.GENADULT ---
HPI - General Adult General Chief complaint: Fall Stated complaint: GLF/down since noon/ no inj Time Seen by Provider: 05/07/24 19:36 Source: patient and EMS Mode of arrival: EMS Limitations: no limitations History of Present Illness HPI narrative: Patient is an 79-year-old female. Has had an extensive medical history over the past week. Was seen here in this emergency department about 1 week ago and subsequently transferred to an outside facility for symptomatic bradycardia. She had a [employer] pacemaker placed. Was discharged from the hospital a couple days later. She had another episode where she was seen here in this emergency department of dizziness. Subsequent workup at that time was relatively unremarkable and she was discharged home. She returns to the emergency department today for weakness. She states about noon today she was looking online for a medical alert button when she had a sudden onset of vomiting. She states she was not dizzy. No chest pain. No shortness of breath. She was unsure as to what caused the nausea in the vomiting. She stated that she was unsure as to how she ended up on the floor but does not think that she fell. Sustained no injuries. She states she could not get up off the floor just because of weakness. No pain. She stayed on the floor for 5-6 hours. She eventually worked her way over to a carpeted area where she was able to call EMS for help. Here in the ER she reports generalized overall weakness. No chest pain. No shortness of breath. Related Data Previous Rx's Medication Instructions Recorded doxycycline hyclate 100 mg capsule 100 mg PO BID #20 caps 05/06/24 Allergies Allergy/AdvReac Type Severity Reaction Status Date / Time Penicillins Allergy Severe Rash Verified 05/01/24 15:09 cephalexin Allergy Unknown Verified 05/01/24 15:09 diazepam Allergy Unknown Verified 05/01/24 15:09 esomeprazole Allergy Unknown Verified 05/01/24 15:09 lamotrigine Allergy Unknown Verified 05/01/24 15:09 lisinopril Allergy Unknown Verified 05/01/24 15:09 Review of Systems Review of Systems ROS Unobtainable: All systems reviewed & are unremarkable except as noted in HPI and below Patient History Social History Smoking Status: Never smoker Smoking Status: Never smoker Substance Use Type: does not use Exam Initial Vital Signs Initial Vital Signs: Vital Signs Temperature 97 F L 05/07/24 19:44 Pulse Rate 60 05/07/24 19:44 Respiratory Rate 31 H 05/07/24 19:44 Blood Pressure 136/67 05/07/24 19:44 Pulse Oximetry 95 05/07/24 19:44 Oxygen Delivery Method Room Air 05/07/24 19:44 Const General: cooperative, comfortable, No diaphoretic and No ill appearing HENMT Head: normocephalic Mouth: No moist mucous membranes (Dry mucous membranes) Chest Other: Dressing and left upper chest over pacemaker site appears clean dry and intact Resp Effort & Inspection: normal respiratory effort Auscultation: clear to auscultation bilaterally Cardio Rate: regular rate Rhythm: regular rhythm GI Inspection: normal to inspection and non-distended Palpation: soft and No tender Skin General: no rashes or lesions noted Other: Poor skin turgor Neuro General: patient alert, patient awake, patient oriented x3 and moves all extremities Extrem Other: No gross deformities Scores GCS Bertram coma scale eye opening: Spontaneous Bertram coma scale verbal response: Orientated Bertram coma scale motor response: Obey commands Bertram coma scale total score: 15 Course Orders Ordered: ED Orders 05/07/24 19:47 EKG-12 Lead Stat 05/07/24 19:50 BNP [NT-proBNP (BNP-Adult 18+)] Stat Complete Blood Count AUTO DIFF Stat Comprehensive Metabolic Panel Stat Lipase Stat Magnesium Stat Troponin & CK Cardiac Panel Stat 05/07/24 21:30 XR chest 1V Stat Sodium Chloride (Normal Saline 0.9%) 500 mls @ 500 mls/hr IV BOLUS ONE Stop: 05/07/24 21:58 Last Admin: 05/07/24 21:07 Dose: 500 mls/hr Documented By: Vital Signs Vital signs: Vital Signs - 8 hr 05/07/24 19:44 Temperature 97 F L Pulse Rate 60 Respiratory Rate 31 H Blood Pressure 136/67 Pulse Oximetry 95 Oxygen Delivery Method Room Air Medical Decision Making Medical Records Medical records reviewed: Yes I reviewed the patient's medical records. Lab Data Lab results reviewed: Yes I reviewed the patient's lab results. 05/07/24 19:50 05/07/24 19:50 Labs: Lab Results 05/07/24 Range/Units 19:50 WBC 9.0 (4.5-11.0) X10^3/uL RBC 4.93 (4.0-5.2) X10^6/uL Hgb 14.8 (12.0-16.0) g/dL Hct 44.1 (36-46) % MCV 89.4 (80-100) fL MCH 30.0 (26-34) PG MCHC 33.5 (30-36) % RDW 14.5 (11.6-14.8) % Plt Count 316 (150-400) X10^3/uL Neut % (Auto) 79.6 H (50-75) % Lymph % (Auto) 10.4 L (25-40) % [place] % (Auto) 9.3 (3-14) % Eos % (Auto) 0.4 L (2-4) % Baso % (Auto) 0.3 (0-2) % Neut # (Auto) 7200 H (3352-3165) /uL Lymph # (Auto) 900 L (4815-9860) /uL [place] # (Auto) 800 (0-900) /uL Eos # (Auto) 0 (0-450) /uL Baso # (Auto) 0 (0-100) /uL Sodium 136 L (137-145) mmol/L Potassium 4.5 (3.4-5.1) mmol/L Chloride 101 (98-107) mmol/L Carbon Dioxide 27 (22-32) mmol/L BUN 18 H (7-17) mg/dL Creatinine 0.79 (0.52-1.04) mg/dL Estimated GFR > 60 (>60) mL/min BUN/Creatinine Ratio 22.8 H (6-22) Glucose 130 H (80-110) mg/dL Calcium 9.7 (8.4-10.2) mg/dL Magnesium 2.3 (1.6-2.3) mg/dL Total Bilirubin 0.7 (0.2-1.3) mg/dL AST 52 H (14-36) IU/L ALT 37 H (<35) IU/L Alkaline Phosphatase 89 (38-126) U/L Total Creatine Kinase 69 (30-135) U/L Troponin I < 0.012 (0.01-0.034) ng/mL NT-Pro-B Natriuret Pep 440 (<450) pg/mL Total Protein 7.8 (6.3-8.2) g/dL Albumin 4.7 (3.5-5.0) g/dL Globulin 3.1 (1.7-4.1) g/dL Albumin/Globulin Ratio 1.5 (1.0-2.8) Lipase 47 (23-300) U/L Imaging Data Chest x-ray: Radiologist's Impression: PROCEDURE: XR CHEST 1V INDICATIONS: Tachypnea, eval for pneumonia TECHNIQUE: One view of the chest was acquired. COMPARISON: [facility], CR, XR CHEST 1V, 05/06/2024, 19:20. [facility], CR, XR CHEST 1V, 05/01/2024, 13:50. FINDINGS: Surgical changes and devices: Cardiac pacemaker is seen with pulse generator in the left chest. Surgical anchors again seen in the right humeral head. Lungs and pleura: Mild patchy right basilar opacities. No pleural effusion or pneumothorax. Mediastinum: Cardiac silhouette is mildly enlarged. Bones and chest wall: No suspicious bony lesions. Overlying soft tissues appear unremarkable. IMPRESSION: Mild right basilar opacities may be secondary to atelectasis, aspiration, or pneumonia. ECG Data Attestation: I personally reviewed and interpreted this ECG as follows: Interpretation: Atrially paced rhythm Rate is 62 MDM Narrative Medical decision making narrative: Patient is mildly clinically dehydrated with poor skin turgor and dry mucous membranes. She has been unable to produce a urine. Her [employer] pacemaker was interrogated. It appears that she was paste approximately 50% of the time without dysfunction. She was paced on the EKG here today. There was no trauma noted. She was GCS of 15 and alert and oriented x3. No neck pain. No extremity pain. Patient was unable to sit up out of bed secondary to generalized weakness. She currently is not vomiting. Discussed the case with Dr. Smith hospitalist on-call. Will admit for observation and dehydration and fluid hydration and physical therapy. Patient clinically does not have pneumonia. We will hold on any antibiotics for now. Discharge Plan Departure Patient Disposition: Admitted as Observation Clinical Impression: Dehydration, Weakness Admit Date/Time: 05/07/24 21:32 Admit Provider: Pablo Smith
[2024-05-07 20:01] LABS: Add Manual Diff / Slide Review NO; Basophils Absolute Auto 0 /uL (0-100); Basophils Percent Auto 0.3 % (0-2); Eosinophils Absolute Auto 0 /uL (0-450); Eosinophils Percent Auto 0.4 % (2-4); Hematocrit 44.1 % (36-46); Hemoglobin 14.8 g/dL (12.0-16.0); Lymphocytes Absolute Auto 900 /uL (1100-4500); Lymphocytes Percent Auto 10.4 % (25-40); Mean Corpuscular HGB Conc 33.5 % (30-36); Mean Corpuscular Volume 89.4 fL (80-100); Monocytes Absolute Auto 800 /uL (0-900); Monocytes Percent Auto 9.3 % (3-14); Neutrophils Absolute Auto 7200 /uL (1500-7000); Neutrophils Percent Auto 79.6 % (50-75); Platelet Count 316 X10^3/uL (150-400); Red Blood Cell Count 4.93 X10^6/uL (4.0-5.2); Red Cell Distribution Width 14.5 % (11.6-14.8)
--- NOTE | 2024-05-07 20:04 | EKG_ITS ---
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
[2024-05-07 20:14] LABS: Alanine Aminotransferase 37 IU/L (<35); Albumin 4.7 g/dL (3.5-5.0); Albumin Globulin Ratio 1.5 (1.0-2.8); Alkaline Phosphatase 89 U/L (38-126); Aspartate Aminotransferase 52 IU/L (14-36); BUN Creatinine Ratio 22.8 (6-22); Bilirubin Total 0.7 mg/dL (0.2-1.3); Blood Urea Nitrogen 18 mg/dL (7-17); Calcium 9.7 mg/dL (8.4-10.2); Carbon Dioxide 27 mmol/L (22-32); Chloride 101 mmol/L (98-107); Creatine Kinase 69 U/L (30-135); Estimated Glomerular Filt Rate > 60 mL/min (>60); Globulin 3.1 g/dL (1.7-4.1); Glucose 130 mg/dL (80-110); HEMOLYSIS 18 (0-50); Lipase 47 U/L (23-300); Magnesium 2.3 mg/dL (1.6-2.3); Potassium 4.5 mmol/L (3.4-5.1); Sodium 136 mmol/L (137-145); Total Protein 7.8 g/dL (6.3-8.2)
[2024-05-07 20:26] LABS: Troponin I < 0.012 ng/mL (0.01-0.034)
[2024-05-07 20:56] LABS: NT-proBNP (BNP-Adult 18+) 440 pg/mL (<450)
--- NOTE | 2024-05-07 21:00 | PC.NURSE ---
Attempted to get patient out of bed, pt unable to push self up and sit at the bedside. Pt trying to use walker to get her self out of bed. Pt's head leaning out over the side of the bed. In this position, pt looks like she is about to fall out of bed onto the floor. Pt is too weak to hold herself up without help.
[2024-05-07] MEDS: SODIUM CHLORIDE 0.9% 500 ML IV (21:07)
--- NOTE | 2024-05-07 21:30 | DI.RAD.S_ITS ---
PROCEDURE: XR CHEST 1V INDICATIONS: Tachypnea, eval for pneumonia TECHNIQUE: One view of the chest was acquired. COMPARISON: [facility], CR, XR CHEST 1V, 05/06/2024, 19:20. [facility], CR, XR CHEST 1V, 05/01/2024, 13:50. FINDINGS: Surgical changes and devices: Cardiac pacemaker is seen with pulse generator in the left chest. Surgical anchors again seen in the right humeral head. Lungs and pleura: Mild patchy right basilar opacities. No pleural effusion or pneumothorax. Mediastinum: Cardiac silhouette is mildly enlarged. Bones and chest wall: No suspicious bony lesions. Overlying soft tissues appear unremarkable. IMPRESSION: Mild right basilar opacities may be secondary to atelectasis, aspiration, or pneumonia. Approved by: Tim Seymour M.D. on 05/07/2024 at 21:48
[2024-05-08] VITALS (48 sets, daily range): BP systolic 103–192; BP diastolic 58–79; PULSE 60–80; RESP 10–34; TEMP 36.2–37.2; O2SAT 94–98; BMI 35.4
--- NOTE | 2024-05-08 05:24 | PM.HP.1 ---
History of Present Illness History of Present Illness Date Patient Seen: 05/07/24 Time Patient Seen: 21:20 Chief complaint: GLF/down since noon/ no inj Narrative: 79 years old female with a past medical history of cardiac arrhythmia/symptomatic bradycardia status post pacemaker placement with recent hospitalization, hypertension and multiple other medical issues was brought to the emergency room for generalized weakness with multiple falls. Patient was bruising on line when she had a sudden bout of vomiting with no dizziness or loss of consciousness. Reports her p.o. intake has been poor since her recent hospitalization and denies any fever or chest pain. No shortness of breath. She was weak and not sure if she lost consciousness but was on the floor probably for 5 to 6 hours due to significant weakness and eventually was able to work over to a carpeted area and EMS was called. Denies any constipation or diarrhea. No bladder issues. In the emergency room, patient was paced appropriately and the pacemaker was interrogated. Vitals showed a blood pressure 136/67 with a pulse in the 60s and the O2 saturation of 95%. Labs showed a WBC of 9.0 with a hemoglobin of 14.8 and a platelet count of 316. Sodium is 136 with a BUN of 18 creatinine of 0.79 and a blood sugar of 130. AST/ALT is 52/37 with a BNP of 440. Calcium is 9.7 with a lipase of 47/normal CPK. Chest x-ray shows no acute process and that shows mild right basilar opacities secondary to atelectasis/aspiration. Patient was initiated on IV fluids and admitted for further evaluation [facility] Social History Smoking Status: Never smoker Meds Home Medications and Allergies Home Medications Medication Instructions Recorded Confirmed Type doxycycline hyclate 100 mg capsule 100 mg PO BID #20 caps 05/06/24 Rx Allergies Allergy/AdvReac Type Severity Reaction Status Date / Time Penicillins Allergy Severe Rash Verified 05/01/24 15:09 cephalexin Allergy Unknown Verified 05/01/24 15:09 diazepam Allergy Unknown Verified 05/01/24 15:09 esomeprazole Allergy Unknown Verified 05/01/24 15:09 lamotrigine Allergy Unknown Verified 05/01/24 15:09 lisinopril Allergy Unknown Verified 05/01/24 15:09 Review of Systems Review of Systems Narrative: A 12 point review of system is negative unless otherwise stated in history of present illness Exam Vital Signs (past 8 hours): - 05/07/24 21:30 05/07/24 21:30 05/07/24 22:00 Pulse Rate 60 Respiratory Rate 17 Blood Pressure 142/67 H 138/65 Pulse Oximetry 97 05/07/24 22:00 05/07/24 22:30 05/07/24 22:30 Pulse Rate 60 60 Respiratory Rate 12 19 Blood Pressure 151/70 H Pulse Oximetry 96 94 05/07/24 23:00 05/07/24 23:00 05/07/24 23:30 Pulse Rate 60 Respiratory Rate 23 Blood Pressure 153/71 H 131/60 Pulse Oximetry 94 05/07/24 23:30 05/08/24 00:00 05/08/24 00:00 Pulse Rate 60 60 Respiratory Rate 22 Blood Pressure 131/63 Pulse Oximetry 94 05/08/24 00:30 05/08/24 00:31 05/08/24 00:31 Pulse Rate 60 60 Respiratory Rate Blood Pressure 151/73 H Pulse Oximetry 05/08/24 00:36 Pulse Rate Respiratory Rate 22 Blood Pressure Pulse Oximetry Oxygen Delivery Method Room Air Narrative Exam Narrative: Patient is awake and does not appear to be in acute distress Oriented and following commands Air entry decreased bilaterally at the base Trace edema Objective Labs 05/07/24 19:50 05/07/24 19:50 Labs: Laboratory Results - last 24 hr 05/07/24 19:50 WBC 9.0 RBC 4.93 Hgb 14.8 Hct 44.1 MCV 89.4 MCH 30.0 MCHC 33.5 RDW 14.5 Plt Count 316 Neut % (Auto) 79.6 H Lymph % (Auto) 10.4 L [place] % (Auto) 9.3 Eos % (Auto) 0.4 L Baso % (Auto) 0.3 Neut # (Auto) 7200 H Lymph # (Auto) 900 L [place] # (Auto) 800 Eos # (Auto) 0 Baso # (Auto) 0 Sodium 136 L Potassium 4.5 Chloride 101 Carbon Dioxide 27 BUN 18 H Creatinine 0.79 Estimated GFR > 60 BUN/Creatinine Ratio 22.8 H Glucose 130 H Calcium 9.7 Magnesium 2.3 Total Bilirubin 0.7 AST 52 H ALT 37 H Alkaline Phosphatase 89 Total Creatine Kinase 69 Troponin I < 0.012 NT-Pro-B Natriuret Pep 440 Total Protein 7.8 Albumin 4.7 Globulin 3.1 Albumin/Globulin Ratio 1.5 Lipase 47 Assessment & Plan Assessment & Plan narrative: 79 years old female with a past medical history of cardiac arrhythmia/symptomatic bradycardia status post pacemaker placement with recent hospitalization, hypertension and multiple other medical issues was brought to the emergency room for generalized weakness with multiple falls. Patient was bruising on line when she had a sudden bout of vomiting with no dizziness or loss of consciousness. Reports her p.o. intake has been poor since her recent hospitalization and denies any fever or chest pain. No shortness of breath. She was weak and not sure if she lost consciousness but was on the floor probably for 5 to 6 hours due to significant weakness and eventually was able to work over to a carpeted area and EMS was called. Denies any constipation or diarrhea. No bladder issues. In the emergency room, patient was paced appropriately and the pacemaker was interrogated. Vitals showed a blood pressure 136/67 with a pulse in the 60s and the O2 saturation of 95%. Labs showed a WBC of 9.0 with a hemoglobin of 14.8 and a platelet count of 316. Sodium is 136 with a BUN of 18 creatinine of 0.79 and a blood sugar of 130. AST/ALT is 52/37 with a BNP of 440. Calcium is 9.7 with a lipase of 47/normal CPK. Chest x-ray shows no acute process and that shows mild right basilar opacities secondary to atelectasis/aspiration. Patient was initiated on IV fluids and admitted for further evaluation 1 gait instability with weakness and fall in a patient with recent hospitalization needing pacemaker for symptomatic bradycardia. Suspect deconditioning with gait instability. CPK is within normal levels. Intake orally has been poor. Gentle IV hydration and consult geological science teacher for further evaluation. Consult physical and Occupational Therapy for further input with the potential need for rehab placement 2. Symptomatic bradycardia status post pacemaker placement. Pacemaker was checked and appears to be working fairly well 3 gait instability consult physical and Occupational Therapy 4 DVT prophylaxis will be with Lovenox Patient will be admitted under observation status Patient was evaluated with the help of video communication device. Location of the patient is [facility] in [facility] and location of the provider is remote telemetrysite with [facility] Time-Based Coding :: [TOTAL MINUTES] spent with patient and on the chart (including review of chart, obtaining history, exam, reviewing outside data, placing orders, documenting exam and treatment plan, and counseling patient) on [DATE].
[2024-05-08 05:47] LABS: Add Manual Diff / Slide Review NO; Basophils Absolute Auto 0 /uL (0-100); Basophils Percent Auto 0.5 % (0-2); Eosinophils Absolute Auto 100 /uL (0-450); Eosinophils Percent Auto 1.8 % (2-4); Hematocrit 40.6 % (36-46); Hemoglobin 13.6 g/dL (12.0-16.0); Lymphocytes Absolute Auto 1600 /uL (1100-4500); Lymphocytes Percent Auto 24.3 % (25-40); Mean Corpuscular HGB Conc 33.4 % (30-36); Mean Corpuscular Volume 89.8 fL (80-100); Monocytes Absolute Auto 900 /uL (0-900); Monocytes Percent Auto 13.9 % (3-14); Neutrophils Absolute Auto 3800 /uL (1500-7000); Neutrophils Percent Auto 59.5 % (50-75); Platelet Count 265 X10^3/uL (150-400); Red Blood Cell Count 4.52 X10^6/uL (4.0-5.2); Red Cell Distribution Width 14.3 % (11.6-14.8); White Blood Cell Count 6.4 X10^3/uL (4.5-11.0)
[2024-05-08 06:01] LABS: Alanine Aminotransferase 28 IU/L (<35); Albumin 3.9 g/dL (3.5-5.0); Albumin Globulin Ratio 1.4 (1.0-2.8); Alkaline Phosphatase 62 U/L (38-126); Aspartate Aminotransferase 44 IU/L (14-36); BUN Creatinine Ratio 17.1 (6-22); Bilirubin Total 0.7 mg/dL (0.2-1.3); Blood Urea Nitrogen 12 mg/dL (7-17); Calcium 9.2 mg/dL (8.4-10.2); Carbon Dioxide 27 mmol/L (22-32); Chloride 106 mmol/L (98-107); Estimated Glomerular Filt Rate > 60 mL/min (>60); Globulin 2.7 g/dL (1.7-4.1); Glucose 91 mg/dL (80-110); Potassium 4.3 mmol/L (3.4-5.1); Sodium 137 mmol/L (137-145); Total Protein 6.6 g/dL (6.3-8.2)
[2024-05-08 06:09] LABS: NT-proBNP (BNP-Adult 18+) 532 pg/mL (<450)
[2024-05-08 06:11] LABS: HEMOLYSIS 75 (0-50)
--- NOTE | 2024-05-08 07:32 | PM.HP.1 ---
History of Present Illness History of Present Illness Date Patient Seen: 05/08/24 Chief complaint: GLF/down since noon/ no inj Narrative: From night doctor: 79 years old female with a past medical history of cardiac arrhythmia/symptomatic bradycardia status post pacemaker placement with recent hospitalization, hypertension and multiple other medical issues was brought to the emergency room for generalized weakness with multiple falls. Patient was bruising on line when she had a sudden bout of vomiting with no dizziness or loss of consciousness. Reports her p.o. intake has been poor since her recent hospitalization and denies any fever or chest pain. No shortness of breath. She was weak and not sure if she lost consciousness but was on the floor probably for 5 to 6 hours due to significant weakness and eventually was able to work over to a carpeted area and EMS was called. Denies any constipation or diarrhea. No bladder issues. In the emergency room, patient was paced appropriately and the pacemaker was interrogated. Vitals showed a blood pressure 136/67 with a pulse in the 60s and the O2 saturation of 95%. Labs showed a WBC of 9.0 with a hemoglobin of 14.8 and a platelet count of 316. Sodium is 136 with a BUN of 18 creatinine of 0.79 and a blood sugar of 130. AST/ALT is 52/37 with a BNP of 440. Calcium is 9.7 with a lipase of 47/normal CPK. Chest x-ray shows no acute process and that shows mild right basilar opacities secondary to atelectasis/aspiration. Patient was initiated on IV fluids and admitted for further evaluation. Additional information: She lives alone in [facility]. She was 2 close friends who are her social network. She was no family members other than an older brother who is not very involved. She was episodes of anxiety. She also has a tremor, this appears to be new. She had a pacemaker placed at [facility] less than a week ago. This appears to be functioning. She was orthostatic in the ED and then hypotensive and improved with a 500 mL bolus of saline. She does not really give a history of having dizziness with standing or walking. She does [facility], [facility] She uses a walker. She was had home health at her place before including PT and OT. They did a lot of modifications for safety as well as removing rugs. She denies any chest pain, or recent fevers, chills, or cough. No leg swelling. Her 2 friends are also power of hand cigar making supervisor for healthcare. They are concerned about her medication compliance. [facility] Social History household members: none Smoking Status: Never smoker Meds Home Medications and Allergies Home Medications Medication Instructions Recorded Confirmed Type amlodipine 10 mg tablet 10 mg PO DAILY 05/08/24 05/08/24 History lamotrigine 100 mg tablet 300 mg PO 3XD 05/08/24 05/08/24 History spironolactone 25 mg tablet 25 mg PO BID 05/08/24 05/08/24 History Allergies Allergy/AdvReac Type Severity Reaction Status Date / Time Penicillins Allergy Severe Rash Verified 05/01/24 15:09 cephalexin Allergy Unknown Verified 05/01/24 15:09 diazepam Allergy Unknown Verified 05/01/24 15:09 esomeprazole Allergy Unknown Verified 05/01/24 15:09 lisinopril Allergy Unknown Verified 05/01/24 15:09 Review of Systems Review of Systems Narrative: All else reviewed and otherwise unremarkable except as noted in the history and physical. Exam Vital Signs (past 8 hours): - 05/08/24 00:00 05/08/24 00:00 05/08/24 00:30 Pulse Rate 60 60 Respiratory Rate Blood Pressure 131/63 Pulse Oximetry Oxygen Delivery Method 05/08/24 00:31 05/08/24 00:31 05/08/24 00:36 Pulse Rate 60 Respiratory Rate 22 Blood Pressure 151/73 H Pulse Oximetry Oxygen Delivery Method 05/08/24 01:00 05/08/24 01:00 05/08/24 01:30 Pulse Rate 60 Respiratory Rate 26 H Blood Pressure 121/59 L 116/60 Pulse Oximetry 96 Oxygen Delivery Method 05/08/24 01:30 05/08/24 02:00 05/08/24 02:00 Pulse Rate 60 60 Respiratory Rate 34 H 23 Blood Pressure 161/76 H Pulse Oximetry 97 Oxygen Delivery Method Room Air 05/08/24 02:30 05/08/24 02:30 05/08/24 03:00 Pulse Rate 60 Respiratory Rate 20 Blood Pressure 175/79 H 148/72 H Pulse Oximetry Oxygen Delivery Method 05/08/24 03:00 05/08/24 03:30 05/08/24 03:30 Pulse Rate 60 60 Respiratory Rate 19 15 Blood Pressure 159/72 H Pulse Oximetry Oxygen Delivery Method 05/08/24 04:00 05/08/24 04:00 05/08/24 04:30 Pulse Rate 60 Respiratory Rate 18 Blood Pressure 130/62 133/61 Pulse Oximetry Oxygen Delivery Method 05/08/24 04:30 05/08/24 05:00 05/08/24 05:00 Pulse Rate 60 60 Respiratory Rate 13 22 Blood Pressure 192/79 H Pulse Oximetry Oxygen Delivery Method 05/08/24 05:30 05/08/24 06:00 05/08/24 06:05 Pulse Rate 61 61 61 Respiratory Rate 15 12 14 Blood Pressure Pulse Oximetry Oxygen Delivery Method 05/08/24 06:10 05/08/24 06:15 05/08/24 06:20 Pulse Rate 61 60 63 Respiratory Rate 18 22 14 Blood Pressure Pulse Oximetry Oxygen Delivery Method 05/08/24 06:25 05/08/24 06:30 05/08/24 06:35 Pulse Rate 61 61 61 Respiratory Rate 19 15 11 L Blood Pressure Pulse Oximetry Oxygen Delivery Method 05/08/24 06:40 05/08/24 06:45 05/08/24 06:50 Pulse Rate 61 61 60 Respiratory Rate 13 13 18 Blood Pressure Pulse Oximetry Oxygen Delivery Method 05/08/24 06:55 05/08/24 07:00 05/08/24 07:05 Pulse Rate 60 61 61 Respiratory Rate 18 13 17 Blood Pressure Pulse Oximetry Oxygen Delivery Method 05/08/24 07:10 05/08/24 07:15 05/08/24 07:20 Pulse Rate 60 60 63 Respiratory Rate 16 13 20 Blood Pressure Pulse Oximetry Oxygen Delivery Method 05/08/24 07:20 05/08/24 07:24 05/08/24 07:24 Pulse Rate 72 Respiratory Rate 17 Blood Pressure 141/67 H 103/58 L Pulse Oximetry Oxygen Delivery Method Oxygen Delivery Method Room Air Narrative Exam Narrative: NAD, alert and oriented, fluent speech, calm. Normocephalic skull, EOMI, anicteric sclera, symmetric pupils. Oropharynx unremarkable, no droop. Neck supple, midline trachea, no adenopathy. Lungs clear, normal rate and effort. Heart regular, no murmur gallop or rub. Abdomen is soft, non distended and non tender. Extremities are free of edema. Skin is free of rash or lesions. Joints are not swollen or deformed. Judgment appears to be normal. Oriented to person, place, and time. Conversation make sense. She appears to have reasonable judgment and voices a strong desire to return home as soon as possible. Objective ECG Impression: Paced rhythm. Imaging Multiple studies:: Radiologist's impression: Chest x-ray: Mild right basilar opacities may be secondary to atelectasis, aspiration, or pneumonia. Brain CT: No acute intracranial pathology. Moderate right maxillary sinus mucosal disease is new compared to recent prior. Labs 05/08/24 05:40 05/08/24 05:40 Labs: Laboratory Results - last 24 hr 05/07/24 05/08/24 19:50 05:40 WBC 9.0 6.4 RBC 4.93 4.52 Hgb 14.8 13.6 Hct 44.1 40.6 MCV 89.4 89.8 MCH 30.0 30.0 MCHC 33.5 33.4 RDW 14.5 14.3 Plt Count 316 265 Neut % (Auto) 79.6 H 59.5 D Lymph % (Auto) 10.4 L 24.3 L [place] % (Auto) 9.3 13.9 Eos % (Auto) 0.4 L 1.8 L Baso % (Auto) 0.3 0.5 Neut # (Auto) 7200 H 3800 Lymph # (Auto) 900 L 1600 [place] # (Auto) 800 900 Eos # (Auto) 0 100 Baso # (Auto) 0 0 Sodium 136 L 137 Potassium 4.5 4.3 Chloride 101 106 Carbon Dioxide 27 27 BUN 18 H 12 Creatinine 0.79 0.70 Estimated GFR > 60 > 60 BUN/Creatinine Ratio 22.8 H 17.1 Glucose 130 H 91 Calcium 9.7 9.2 Magnesium 2.3 Total Bilirubin 0.7 0.7 AST 52 H 44 H ALT 37 H 28 Alkaline Phosphatase 89 62 Total Creatine Kinase 69 Troponin I < 0.012 NT-Pro-B Natriuret Pep 440 532 H Total Protein 7.8 6.6 Albumin 4.7 3.9 Globulin 3.1 2.7 Albumin/Globulin Ratio 1.5 1.4 Lipase 47 Assessment & Plan Assessment & Plan narrative: 1. Gait instability with weakness and fall in a patient with recent hospitalization needing pacemaker for symptomatic bradycardia. 2. Symptomatic bradycardia status post pacemaker placement. 3. Orthostatic hypotension. 4. Hypertension. 5. Seizure disorder, on chronic lamotrigine. Plan: -telemetry -hold antihypertensive therapy and monitor blood pressure and orthostatics. -500 cc saline bolus. -PT and OT evaluations. -cognitive screen -medication review. DVT prophylaxis will be with Lovenox Patient will be admitted under observation status Time-Based Coding :: 35 min spent with patient and on the chart (including review of chart, obtaining history, exam, reviewing outside data, placing orders, documenting exam and treatment plan, and counseling patient) on 05/08. Quality MIPS - Admit I confirm the patient?s Advance Care Plan is present, Code status is documented, Surrogate decision maker is in patient?s record [If Yes, STOP here]: Yes MIPS - Meds 'Current medications' to include all prescriptions, [id number] products, herbals, cannabis/cannabidiol products, and vitamin/mineral/dietary (nutritional) supplements. I have utilized all available resources to obtain, update, or review the patient?s current medications. [If Yes, STOP here]: Yes
--- NOTE | 2024-05-08 07:42 | PT.IIE ---
Physical Therapy Inpatient Evaluation/Re-Eval M1 PT/OT-IP Prior Functional Status Start: 05/08/24 07:14 Freq: NEEDED Status: Active Protocol: Document 05/08/24 07:15 MB (Rec: 05/08/24 07:42 [id number]) Medical Review Prior Functional Status Medical History Reviewed Yes Diet/Fluid Consistency Regular Communication Unsure baseline communication, pt is very [place], does not have hearing aides nearby and does not answer all questions appropriately Mobility and Gait Pt states she has multiple AD but she is not clear about what she uses at home, states she has had two falls in the past month and does not say she has passed out when asked Activities of Daily Living and IADL's Pt reports I and that she drives Prior Functional Level (Other details) Pt states [facility] [place] and there is one step to enter Social History Household Members none Living Arrangements Apartment/Condo Number of Floors (Floors) One Floor Number of Stairs To Enter/Railing? 1 step to enter Home Environment Standard Height Toilet,Tub/ Shower Home Equipment Hand Held Shower,Grab Bars Near Toilet,Grab Bars In Shower Employment Status Retired Additional Social History Comment Unclear about what kinds of walkers and canes she has at home and she reports multiple of each M2 PT-IP Current Condition Start: 05/08/24 07:14 Freq: NEEDED Status: Active Protocol: Document 05/08/24 07:15 MB (Rec: 05/08/24 07:42 [id number]) Physical Therapy Current Condition Current Condition Evaluation Date 05/08/24 Treatment Diagnosis Falls, orthostatic with PT M3 PT-IP Subjective Start: 05/08/24 07:14 Freq: NEEDED Status: Active Protocol: Document 05/08/24 07:15 MB (Rec: 05/08/24 07:42 [id number]) Subjective Physical Therapy Visit Type Type Initial Evaluation Visit Start Time 07:15 Visit Stop Time 07:30 Number of PLANT PHYSIOLOGIST Visits 0 Physical Therapy Visit Comments Patient Comments Pt [place], does not answer all questions appropriately or follow commands well at least partially d/t poor hearing Therapy Pain Assessment Pain When Pain Assessed At Rest Pain Present Pain Present Denied Pain M4 PT-IP Mobility and Gait Start: 05/08/24 07:14 Freq: NEEDED Status: Active Protocol: Document 05/08/24 07:15 MB (Rec: 05/08/24 07:42 MB [id number]) PT-Bed Mobility Assessment Rolling Type of Rolling Roll to Right Level of Assist Contact Guard Assistance Supine to Sit Supine to Sit Contact Guard Assistance,1 Person Assistance,Bedrails Sit to Supine Sit to Supine Contact Guard Assistance,1 Person Assistance,Bedrails Scooting Scooting to Edge of Bed Contact Guard Assistance Scooting Up and Down in Bed Contact Guard Assistance PT-Transfer Assessment Sit to and From Stand Sit to and from Stand Minimal Assistance,1 Person Assistance,Use of Upper Extremities Equipment Transfer Assistive Device Front Wheeled Walker Orthotic/Prosthetic Devices or Brace: No Comments Mobility Comments Orthostatic assessment with BP in RUE: supine 141/67; standing 103/58; standing 113/ 68. HR does not always read and reads at 60 BPM on last reading. PT notes pt with recent pacer d/t bradycardia. Returned to supine d/t orthostasis. PT-Balance Assessment Sitting Balance and Reactions Static Sitting Balance Ability Poor Dynamic Sitting Balance Ability Poor Standing Balance and Reactions Static Standing Balance Ability Poor Dynamic Standing Balance Ability Poor Device Used RW M5 PT-IP Objective Assessments Start: 05/08/24 07:14 Freq: NEEDED Status: Active Protocol: Document 05/08/24 07:15 MB (Rec: 05/08/24 07:42 [id number]) Orientation Orientation/Cognition Level of Alertness Confusional State Orientation Name,Age,Birthday,Month,Year, Place Language Function Ability Hard of Hearing Safety Awareness Decreased Safety Awareness Comments Decreased history provided and this is partly d/t [place] Gross Range of Motion Upper Extremity ROM Assessment Within Functional Limits Lower Extremity ROM Assessment Within Functional Limits Strength Comments Strength Comments Pt has trouble following all range and MMT commands d/t poor hearing, right great toe and ankle DF are minimally weaker than the left Coordination Assessment Assessment Coordination Comments Pt cannot follow coordination cues this morning Sensation Assessment Comments Sensation Comments Pt cannot follow sensory cues this morning M6 PT-IP Treatment Start: 05/08/24 07:14 Freq: NEEDED Status: Active Protocol: Document 05/08/24 07:15 MB (Rec: 05/08/24 07:42 [id number]) Physical Therapy Treatment Education Education Provided Safety M7 PT-IP Assessment and Plan Start: 05/08/24 07:14 Freq: NEEDED Status: Active Protocol: Document 05/08/24 07:15 MB (Rec: 05/08/24 07:42 MB [id number]) PT Summary Assessment and Plan Potential Rehabilitation Potential Fair Status of Condition at Evaluation Evolving Summary Impairments Strength,Balance,Coordination, Sensation,Cognition,Bed Mobility,Transfers,Gait, Activity Tolerance Progress Towards Goals Slow Progress due to Medical Issues Assessment Summary Pt is an 79 y/o female reporting recent falls and recent fall and being down. Pt presents with hearing impairment and poor response to questions today and poor command following. She is orthostatic with supine to stand with systolic drop of 38 mmHg and diastolic drop of 9 mmHg and so returned to supine and did not gait pt this a.m. Recommend ongoing PT and increased assistance at d/c. Goals Bed Mobility Goal Independent Transfer Goal Independent,Front Wheeled Walker Gait Goal Independent,Front Wheel Walker Gait Distance 100 Other Goals Pt will ascend and descend 1 step with LRAD and no more than CGA to allow safe home entrance. Days to Meet Goals 5 Frequency of Treatment Frequency Of Treatment Once a Day Treatment Plan Physical Therapy Treatment Plan Bed Mobility Training,Transfer Training,Gait Training, Therapeutic Exercise,Balance Retraining,Discharge Planning, Hot or Cold Pack,Neuromuscular Re-ed,Coordination Retraining ,Manual Therapy Precautions Other Precautions Orthostatic Recommendations To Nursing Amount of Assist Needed 2 Person Assist Discharge Recommendations PT Discharge Recommendations Home vs SNF Other Discharge Recommendations If d/c home, increased assistance and HHPT Transportation Needs at Discharge Private Vehicle,Wheelchair/ Cabulance
[2024-05-08] MEDS: lamoTRIgine 100 MG TABLET 300 MG PO ×3 (08:34→20:20)
[2024-05-08] MEDS: ENOXAPARIN 40 MG/0.4 ML SYRINGE SUBCUT (08:34)
--- NOTE | 2024-05-08 10:57 | PC.NURSE ---
Pt c/o being hot. Not tolerating oximask. Trial with 5L NC. Temp 99
--- NOTE | 2024-05-08 13:38 | OT.IP.EVAL ---
Occupational Therapy Inpatient Evaluation/Re-Eval M1 PT/OT-IP Prior Functional Status Start: 05/08/24 07:14 Freq: NEEDED Status: Active Protocol: Document 05/08/24 15:09 CGR (Rec: 05/08/24 15:24 CGR [id number]) Medical Review Prior Functional Status Medical History Reviewed Yes Diet/Fluid Consistency Regular Communication Pt is very [place] but is appropriate when she is hearing. Mobility and Gait Pt states that she usually uses a 2ww at baseline but also has a 4ww. Activities of Daily Living and IADL's Pt reports I and that she drives Prior Functional Level (Other details) Pt states she lives in a small [facility] in [place] and there is one step to enter Social History Household Members none Living Arrangements Apartment/Condo Number of Floors (Floors) One Floor Number of Stairs To Enter/Railing? 1 step to enter Home Environment Standard Height Toilet,Tub/ Shower Home Equipment Front Wheel Walker,Four Wheel Walker,Hand Held Shower,Grab Bars Near Toilet,Grab Bars In Shower Employment Status Retired M2 OT-IP Current Condition Start: 05/08/24 15:09 Freq: Status: Active Protocol: Document 05/08/24 15:09 CGR (Rec: 05/08/24 15:24 CGR [id number]) Occupational Therapy Current Condition Current Condition Evaluation Date 05/08/24 Treatment Diagnosis sudden onset vomiting then fall, down ~6 hours. Diagnosis Onset Date 05/07/24 M3 OT- IP Subjective and Pain Start: 05/08/24 15:09 Freq: Status: Active Protocol: Document 05/08/24 15:09 CGR (Rec: 05/08/24 15:24 CGR [id number]) OT- Subjective Occupational Therapy Visit Type Type Initial Evaluation Visit Start Time 13:06 Visit Stop Time 13:38 Notes Pt has 2 friends that are present at time of eval but pt states she is agreeable to having them present in the room. OT Pain Assessment Pain When Pain Assessed At Rest Pain Present Pain Present Denied Pain M4 OT- IP ADL's Start: 05/08/24 15:09 Freq: Status: Active Protocol: Document 05/08/24 15:09 CGR (Rec: 05/08/24 15:24 CGR [id number]) OT [id number] Comments OT Self-Feeding Comments not meal time OT ADL-Grooming Comments OT Grooming Comments pt declined to perform OT ADL-Oral Care General Eval Oral Care Ability Standby Assistance Areas of Assistance Brushing Teeth Comments Oral Care Comments pt brushed teeth seated in chair d/t drop in BP. OT ADL-Dressing General Eval Lower Body Dressing Ability Independent Areas Needing Assistance Socks Comments OT Dressing Comments seated in chair. OT ADL-Toileting Comments OT Toileting Comments not performed OT ADL-Bathing Comments OT Bathing Comments not performed M5 OT- IP IADL's Start: 05/08/24 15:09 Freq: Status: Active Protocol: Document 05/08/24 15:09 CGR (Rec: 05/08/24 15: CGR [id number]) OT-Instrumental Activities of Daily Living Deficits IADL Deficits Identified No Deficits Home Safety Awareness Awareness of Need for Assistance at Home Good Awareness Ability to Problem Solve Emergency Able to Problem Solve Situations Medication Management Medication Management No Deficits Identified Money Management Money Management No Deficits Identified Meal Preparation Meal Preparation No Deficits Identified Car Dealer Car 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 No Deficits Identified Driving Driving Concerns Identified Regarding Safety M6 OT- IP Functional Cognition Start: 05/08/24 15:09 Freq: Status: Active Protocol: Document 05/08/24 15:09 CGR (Rec: 05/08/24 15:24 CGR [id number]) Cognitive Factors Limiting Selfcare Function Cognitive Ability Level of Alertness Alert Patient Orientation Name,Age,Birthday,Month,Date, Year,Day of Week,Place, Situation Attention Span Ability Capable of Focused Attention, Capable of Sustained Attention Ability to Follow Commands Able to Follow One Step Commands with Increased Time, Able to Follow One Step Commands with Repetition Cognitive Comments Cognitive Assessment Comments Pt apears to be oriented and sharp but has severe hearing deficit and often responds to what she thinks is being said. OT- Vision and Hearing OT- Hearing Assessment OT- Hearing Assessment Hearing Impaired,Use of Hearing Aids OT- Vision Assessment Visual Attentiveness WFL Occular Pursuits WFL Visual Convergence WFL Vision Assessment Comments Pt is unable to perform smooth persuits but instead darts with tracking. M7 OT- IP Mobility and Balance Start: 05/08/24 15:09 Freq: Status: Active Protocol: Document 05/08/24 15:09 CGR (Rec: 05/08/24 15:24 CGR [id number]) OT- Bed Mobility Assessment Scooting Scooting to Edge of Bed Standby Assistance OT-Transfer Assessment Sit to and From Stand Sit to and from Stand Contact Guard Assistance Transfers Transfer Ability Contact Guard Assistance Technique Transfer Destination Bed,Chair Transfer Technique Stand Step Pivot Devices Transfer Assistive Devices Gait Belt,Front Wheeled Walker Comments Mobility Comments mobility limited d/t significant drop in BP from long sitting : 131/93 sitting EOB: [birth year]/69 sitting up in chair with legs down: 112/63 OT- Balance Assessment Sitting Balance and Reactions Static Sitting Balance Ability Normal Dynamic Sitting Balance Ability Normal M8 OT- IP Objective Assessments Start: 05/08/24 15:09 Freq: Status: Active Protocol: Document 05/08/24 15:09 CGR (Rec: 05/08/24 15:24 CGR [id number]) OT Gross Range of Motion Upper Extremity Range of Motion Assessment Within Functional Limits ROM Impairments LUE restrictions from recent pacer placement (05/02) OT Strength Upper Extremity Strength Assessment Within Functional Limits Comments Strength Comments arms and hands 4/5 OT- Coordination Assessment Upper Extremity Finger to Nose Test Within Functional Limits Finger Tapping Test Within Functional Limits OT-Muscle Tone Assessment Muscle Tone WNL Yes OT Sensation Assessment Edema Edema Absent M9 OT- IP Assessment and Plan Start: 05/08/24 15:09 Freq: Status: Active Protocol: Document 05/08/24 15:09 CGR (Rec: 05/08/24 15:24 CGR [id number]) OT Summary Assessment and Plan Potential Rehabilitation Potential Excellent Analytic Complexity at Evaluation Low Summary OT Impairments Functional Mobility,Toileting, Bathing,Toilet Transfers, Shower Transfers,Activity Tolerance Progress Towards Goals Progressing Toward Goals Assessment Summary Pt presents as a low complexity evaluation s/p admit for vomiting and fall. Pt states that she lives with her orthostatic hypotension and that her blood pressure is not a new issue. Pt limited in ADLs and functional mobility based on her orthostatic hypotension. Pt states that she was a symptomatic in todays session. Pt will benefit from 1-2 more OT sessions but pt is likely close to her baseline. Goals Toileting Goal Independent Bathing Goal Independent Toilet Transfer Goal Independent Shower Transfer Goal Independent Patient/Caregiver Education Goal Demonstrate Energy Conservation and Pacing Days to Meet Goals 2 Frequency of Treatment Other frequency 5x per week Treatment Plan OT Treatment Plan ADL Training,Functional Mobility,Patient/Family Education,Discharge Planning Other Treatment Recommendations and Next toielting and showering given Treatment Focus orthostatics Discharge Recommendations OT Discharge Recommendations Home,Home Health Transportation Needs at Discharge Private Vehicle
[2024-05-08 18:04] LABS: Appearance Urine UA CLEAR; Bilirubin Urine UA NEGATIVE (NEGATIVE); Glucose Urine UA NEGATIVE (Negative); Ketones Urine UA NEGATIVE (NEGATIVE); Leukocyte Esterase Urine UA 1+ (NEGATIVE); Nitrite Urine UA NEGATIVE (Negative); Occult Blood Urine UA NEGATIVE (Negative); Protein Urine UA NEGATIVE (Negative); Urobilinogen Urine UA 0.2 E.U./dL (0.2)
[2024-05-08 18:13] LABS: Color Urine UA Amber
[2024-05-08 18:27] LABS: Bacteria Urine Few (2-10); Culture Indicated Urine Specimen Cultured; RBC Urine 0-1/HPF (0-5/HPF); Squamous Epithelial Cell Urine 0-1 /HPF (0-5/HPF); Urine Volume 10mL (spun); WBC Urine 1-5/HPF (0-5/HPF)
[2024-05-08] MEDS: SODIUM CHLORIDE 0.9% FLUSH 10 ML IV (20:20)
[2024-05-08] MEDS: DOXYCYCLINE HYCLATE 100 MG TABLET PO (20:20)
[2024-05-08] MEDS: ACETAMINOPHEN 325 MG TABLET 650 MG PO (23:02)
[2024-05-09] VITALS (44 sets, daily range): BP systolic 120–201; BP diastolic 57–109; PULSE 60–79; RESP 14–37; TEMP 36.2–36.6; O2SAT 92–98
[2024-05-09 04:09] LABS: Hematocrit 40.4 % (36-46); Hemoglobin 13.8 g/dL (12.0-16.0); Mean Corpuscular HGB Conc 34.3 % (30-36); Mean Corpuscular Hemoglobin 30.5 PG (26-34); Platelet Count 285 X10^3/uL (150-400); Red Blood Cell Count 4.54 X10^6/uL (4.0-5.2); Red Cell Distribution Width 14.3 % (11.6-14.8)
[2024-05-09 04:25] LABS: BUN Creatinine Ratio 24.4 (6-22); Blood Urea Nitrogen 22 mg/dL (7-17); Calcium 9.5 mg/dL (8.4-10.2); Carbon Dioxide 27 mmol/L (22-32); Chloride 104 mmol/L (98-107); Estimated Glomerular Filt Rate > 60 mL/min (>60); Glucose 92 mg/dL (80-110); HEMOLYSIS < 15 (0-50); Potassium 4.2 mmol/L (3.4-5.1); Sodium 137 mmol/L (137-145)
[2024-05-09 05:33] LABS: Neutrophils Absolute Manual 4620 /uL (3000-5900); Platelet Estimate Adequate on smear; RBC Morphology Normal Morphology; Total Cells Counted 100
[2024-05-09] MEDS: DOXYCYCLINE HYCLATE 100 MG TABLET PO ×2 (08:56→20:34)
[2024-05-09] MEDS: ENOXAPARIN 40 MG/0.4 ML SYRINGE SUBCUT (08:56)
[2024-05-09] MEDS: lamoTRIgine 100 MG TABLET 300 MG PO ×3 (08:56→20:33)
[2024-05-09] MEDS: SODIUM CHLORIDE 0.9% FLUSH 10 ML IV ×2 (08:58→20:34)
--- NOTE | 2024-05-09 11:10 | PT.IPTN ---
Current Diagnoses Other abnormalities of gait and mobility (05/07/24) Physical Therapy Treatment Note M2 PT-IP Current Condition Start: 05/08/24 07:14 Freq: NEEDED Status: Active Protocol: Document 05/08/24 07:15 MB (Rec: 05/08/24 07:42 MB [id number]) Physical Therapy Current Condition Current Condition Evaluation Date 05/08/24 Treatment Diagnosis Falls, orthostatic with PT M3 PT-IP Subjective Start: 05/08/24 07:14 Freq: NEEDED Status: Active Protocol: Document 05/09/24 11:10 AB (Rec: 05/09/24 12:52 AB [id number]) Subjective Physical Therapy Visit Type Type Treatment Note Visit Start Time 11:10 Visit Stop Time 12:00 Number of TIMBER TREATMENT PLANT OPERATOR Visits 0 Physical Therapy Visit Comments Patient Comments agreeable to do PT M4 PT-IP Mobility and Gait Start: 05/08/24 07:14 Freq: NEEDED Status: Active Protocol: Document 05/09/24 11:10 AB (Rec: 05/09/24 12:52 AB [id number]) PT-Transfer Assessment Sit to and From Stand Sit to and from Stand Standby Assistance,Contact Guard Assistance,1 Person Assistance,Use of Upper Extremities Equipment Transfer Assistive Device Gait Belt,Front Wheeled Walker Orthotic/Prosthetic Devices or Brace: No Comments Mobility Comments pt sitting on the chair. pt's friend in room. pt agreed to do PT. BP monitored. BP sittin/78. pt completed sit to stand from the chair CGA. BP in standing : 120/67. pt without c/o dizziness/ lightheadedness/nausea. pt stood up for ~ 2-3 more minutes and BP checked again: 125/70. pt agreed to walk and completed ~ 30 ft using FWW SBA to CGA. pt sat back on the chair. BP checked: 140/72 . pt agreed to do platform step. completed up/down platform step using FWW CGA. completed x 2 sets. pt ambulated back to her room using fWW SBA to occasional CGA and sat back on her chair. positioned pt on the chair. call light and table placed within reach. BP checked seated at end of BP session: 173/77. nurse aware. pt can be impulsive. educated pt on safety. Gait Assessment Gait Gait Assistance Required: Standby Assistance,1 Person Assist Distance (Feet) 30 Able to Maintain Weight Bearing Status Yes During Gait Assistive Devices Assistive Device Gait Belt,Front Wheeled Walker Orthotic/Prosthetic Devices or Brace: No Gait Deviations General Gait Pattern Antalgic Factors Limiting Gait Function Factors Limiting Gait Function Decreased Activity Tolerance, Decreased Strength,Difficulty Following Directions,Poor Balance,Poor Safety Awareness Stair Climbing Assessment Evaluation Level of Assist On Stairs Contact Guard Assistance Devices Stair Climbing Assistive Devices Front Wheel Walker Technique/Endurance Stair Climbing Direction Ascend and Descend Stair Climbing Technique Step to Step Number of Steps Climbed 1 Stair Climbing Set # Repetitions (reps) 2 M5 PT-IP Objective Assessments Start: 05/08/24 07:14 Freq: NEEDED Status: Active Protocol: Document 05/08/24 07:15 MB (Rec: 05/08/24 07:42 MB [id number]) Orientation Orientation/Cognition Level of Alertness Confusional State Orientation Name,Age,Birthday,Month,Year, Place Language Function Ability Hard of Hearing Safety Awareness Decreased Safety Awareness Comments Decreased history provided and this is partly d/t CIRCLE Gross Range of Motion Upper Extremity ROM Assessment Within Functional Limits Lower Extremity ROM Assessment Within Functional Limits Strength Comments Strength Comments Pt has trouble following all range and MMT commands d/t poor hearing, right great toe and ankle DF are minimally weaker than the left Coordination Assessment Assessment Coordination Comments Pt cannot follow coordination cues this morning Sensation Assessment Comments Sensation Comments Pt cannot follow sensory cues this morning M6 PT-IP Treatment Start: 05/08/24 07:14 Freq: NEEDED Status: Active Protocol: Document 05/09/24 11:10 AB (Rec: 05/09/24 12:52 AB [id number]) Physical Therapy Treatment Education Education Provided Safety M7 PT-IP Assessment and Plan Start: 05/08/24 07:14 Freq: NEEDED Status: Active Protocol: Document 05/09/24 11:10 AB (Rec: 05/09/24 12:52 AB [id number]) PT Summary Assessment and Plan Potential Rehabilitation Potential Fair Summary Impairments Pain,ROM,Strength,Balance, Coordination,Sensation,Tone, Cognition,Bed Mobility, Transfers,Gait,Activity Tolerance Progress Towards Goals Slow Progress due to Activity Tolerance,Slow Progress - Other Assessment Summary pt requiring SBA to CGA with mobility using FWW and can be impulsive with decrease safety awareness. Pt still has orthostatic hypotension with decrease in BP from 178/78 in sitting to 120/67 in stand. pt asymptomatic and BP. stabilizes in standing at 120/ 67 and 125/70. will continue to assess progress. pt stated that she is in the process to get a life alert. d/c plan: SNF vs home with assist. Goals Bed Mobility Goal Independent Transfer Goal Independent,Front Wheeled Walker Gait Goal Independent,Front Wheel Walker Gait Distance 100 Other Goals Pt will ascend and descend 1 step with LRAD and no more than CGA to allow safe home entrance. Days to Meet Goals 10 Frequency of Treatment Frequency Of Treatment Once a Day Treatment Plan Physical Therapy Treatment Plan Bed Mobility Training,Transfer Training,Gait Training, Therapeutic Exercise,Balance Retraining,Discharge Planning, Hot or Cold Pack,Neuromuscular Re-ed,Coordination Retraining ,Manual Therapy Precautions Other Precautions BP Recommendations To Nursing Amount of Assist Needed 1 Person Assist Discharge Recommendations PT Discharge Recommendations Home vs SNF Transportation Needs at Discharge Private Vehicle,Wheelchair/ Cabulance
--- NOTE | 2024-05-09 11:54 | PC.NURSE ---
Patient ambulated with ZOOGLER and walker in halls this morning and to bathroom. Denies lightheadedness, states i'm feeling good. BP's elevated over night and this morning, patient's amlodipine restarted by Dr. Burris. Prior to amlodipine administration P.T. evaluated patient and noted sitting BP 178/78, then standing BP 120/67, HR unchanged at 65's (paced). Patient denies symptoms with this change in BP and able to continue to participate in P.T. Dr. Burris notified, would like to continue with amlodipine as ordered, and recheck orthostatics again after admin. Will continue to monitor.
[2024-05-09] MEDS: AMLODIPINE 5 MG TABLET PO (12:00)
--- NOTE | 2024-05-09 13:57 | OT.IP.TRT ---
Current Diagnoses Other abnormalities of gait and mobility (05/07/24) Occupational Therapy Treatment Note M2 OT-IP Current Condition Start: 05/08/24 15:09 Freq: Status: Active Protocol: Document 05/08/24 15:09 CGR (Rec: 05/08/24 15:24 CGR [id number]) Occupational Therapy Current Condition Current Condition Evaluation Date 05/08/24 Treatment Diagnosis sudden onset vomiting then fall, down ~6 hours. Diagnosis Onset Date 05/07/24 M3 OT- IP Subjective and Pain Start: 05/08/24 15:09 Freq: Status: Active Protocol: Document 05/09/24 13:57 [facility] (Rec: 05/09/24 14:06 CCC [id number]) OT- Subjective Occupational Therapy Visit Type Type Treatment Note Visit Start Time 13:18 Visit Stop Time 13:57 Occupational Therapy Visit Comments Patient Comments Pt having a bowel movement when OT came in to work with the pt. Patient/Caregiver Goals Pt now open to going to skilled rehab. OT Pain Assessment Pain When Pain Assessed At Rest Pain Present Pain Present Denied Pain M4 OT- IP ADL's Start: 05/08/24 15:09 Freq: Status: Active Protocol: Document 05/09/24 13:57 [facility] (Rec: 05/09/24 14:06 [facility] [id number]) OT [id number] Comments OT Self-Feeding Comments not meal time OT ADL-Grooming Comments OT Grooming Comments Not performed. OT ADL-Oral Care Comments Oral Care Comments Not performed. OT ADL-Dressing General Eval Lower Body Dressing Ability Moderate Assistance Areas Needing Assistance Underpants/Brief,Socks Comments OT Dressing Comments Pt tired from showering and now needing assist to aleksandar her socks amd brief. Educated her to aleksandar the RLE first as it is weaker. OT ADL-Toileting General Evaluation Toileting Ability Moderate Assistance Areas Needing Assistance Perform Perineal Hygiene Comments OT Toileting Comments Assist fro completeness of hygiene. OT ADL-Bathing Bathing Type Bathing Type Shower General Evaluation Bathing Ability Moderate Assistance Areas Needing Assistance Wash/Dry Back,Wash/Dry Perineal Area,Wash/Dry Lower Extremities Comments OT Bathing Comments Able to do while seated but needing assist for completeness due to fatigue. M5 OT- IP IADL's Start: 05/08/24 15:09 Freq: Status: Active Protocol: Document 05/08/24 15:09 CGR (Rec: 05/08/24 15:24 CGR [id number]) OT-Instrumental Activities of Daily Living Deficits IADL Deficits Identified No Deficits Home Safety Awareness Awareness of Need for Assistance at Home Good Awareness Ability to Problem Solve Emergency Able to Problem Solve Situations Medication Management Medication Management No Deficits Identified Money Management Money Management No Deficits Identified Meal Preparation Meal Preparation No Deficits Identified Milk Drying Machine Operator Milk Drying Machine Operator No Deficits Identified Driving Driving Concerns Identified Regarding Safety M6 OT- IP Functional Cognition Start: 05/08/24 15:09 Freq: Status: Active Protocol: Document 05/09/24 13:57 [facility] (Rec: 05/09/24 14:06 [facility] [id number]) Cognitive Factors Limiting Selfcare Function Cognitive Comments Cognitive Assessment Comments Pt is able to follow commands and now well aware that she will not be able to care fore herself and best to go to skilled rehab prior to going home. M7 OT- IP Mobility and Balance Start: 05/08/24 15:09 Freq: Status: Active Protocol: Document 05/09/24 13:57 [facility] (Rec: 05/09/24 14:06 [facility] [id number]) OT-Transfer Assessment Sit to and From Stand Sit to and from Stand Minimal Assistance Transfers Transfer Ability Contact Guard Assistance Technique Transfer Destination Bed,Shower Stall,Toilet Devices Transfer Assistive Devices Gait Belt,Front Wheeled Walker Comments Mobility Comments After showering BP 153/71 and pt states feeling weak. Pt already sitting on the toilet when OT arrived and therefore did not get a BP prior. CHRISTELLE to stand from lower surfaces, CGA on her feet and assist to help get her legs back into bed. OT- Balance Assessment Sitting Balance and Reactions Static Sitting Balance Ability Normal Dynamic Sitting Balance Ability Good Standing Balance and Reactions Static Standing Balance Ability Good Dynamic Standing Balance Ability Fair M8 OT- IP Objective Assessments Start: 05/08/24 15:09 Freq: Status: Active Protocol: Document 05/08/24 15:09 CGR (Rec: 05/08/24 15:24 R [id number]) OT Gross Range of Motion Upper Extremity Range of Motion Assessment Within Functional Limits ROM Impairments LUE restrictions from recent pacer placement (05/02) OT Strength Upper Extremity Strength Assessment Within Functional Limits Comments Strength Comments arms and hands 4/5 OT- Coordination Assessment Upper Extremity Finger to Nose Test Within Functional Limits Finger Tapping Test Within Functional Limits OT-Muscle Tone Assessment Muscle Tone WNL Yes OT Sensation Assessment Edema Edema Absent M9 OT- IP Assessment and Plan Start: 05/08/24 15:09 Freq: Status: Active Protocol: Document 05/09/24 13:57 [facility] (Rec: 05/09/24 14:06 [facility] [id number]) OT Summary Assessment and Plan Potential Rehabilitation Potential Good Analytic Complexity at Evaluation Low Summary OT Impairments Functional Mobility,Toileting, Bathing,Toilet Transfers, Shower Transfers,Activity Tolerance Progress Towards Goals Slow Progress due to Activity Tolerance Assessment Summary Pt needing more assist today for ADL needs and quickly fatigues and needing assist for LB dressing, completeness for showering and toileting at this time. Pt now open to going to skilled rehab prior to going home. Goals Grooming Goal Independent Dressing Goal Independent Toileting Goal Independent Bathing Goal Independent Toilet Transfer Goal Independent Shower Transfer Goal Independent Patient/Caregiver Education Goal Demonstrate Energy Conservation and Pacing Days to Meet Goals 15 Frequency of Treatment Other frequency 5x per week Treatment Plan OT Treatment Plan ADL Training,Functional Mobility,Patient/Family Education,Discharge Planning Discharge Recommendations OT Discharge Recommendations SNF Rehab Transportation Needs at Discharge Wheelchair/Cabulance
--- NOTE | 2024-05-09 14:04 | P.PN_ITS ---
Subjective Subjective Interval history: Summary: This is pleasant patient was admitted with episodes of presyncope. She was found to be extremely orthostatic. Her blood pressure meds were held on May 08. She remains very orthostatic this morning despite IV fluids. Therapies are recommended rehabilitation stay at [facility], she was in agreement. Subjective: She denies chest pain or dyspnea. She did get quite weak and lightheaded with standing and a shower today. Exam Vital Signs (past 8 hours): - 05/09/24 07:47 05/09/24 08:00 Temperature 97.8 F Pulse Rate 61 Respiratory Rate 30 H Blood Pressure 163/77 H Pulse Oximetry 97 Oxygen Delivery Method Room Air Oxygen Flow Rate 0 Oxygen Delivery Method Room Air Oxygen Flow Rate 0 Narrative Exam Narrative: NAD, alert and oriented. Fluent speech. Lungs are clear, normal rate and effort. Heart is regular, no murmur gallop or rub. Abdomen is soft, non distended. Extremities are free of edema. Objective Labs 05/09/24 03:47 05/09/24 03:47 Labs: Laboratory Results - last 24 hr 05/08/24 05/09/24 15:30 03:47 WBC 7.0 RBC 4.54 Hgb 13.8 Hct 40.4 MCV 89.0 MCH 30.5 MCHC 34.3 RDW 14.3 Plt Count 285 Total Counted 100 Seg Neutrophils % 65.0 Band Neutrophils % 1.0 L Lymphocytes % (Manual) 26.0 Monocytes % (Manual) 8.0 Neutrophils # (Manual) 4620 Platelet Estimate Adequate on smear RBC Morphology Normal morphology Sodium 137 Potassium 4.2 Chloride 104 Carbon Dioxide 27 BUN 22 H Creatinine 0.90 Estimated GFR > 60 BUN/Creatinine Ratio 24.4 H Glucose 92 Calcium 9.5 Urine Color Enedina Urine Appearance Clear Urine pH 6.0 Ur Specific Irving 1.020 Urine Protein Negative Urine Glucose (UA) Negative Urine Ketones Negative Urine Occult Blood Negative Urine Nitrate Negative Urine Bilirubin Negative Urine Urobilinogen 0.2 Ur Leukocyte Esterase 1+ H Urine RBC 0-1/hpf Urine WBC 1-5/hpf Ur Squamous Epith Cells 0-1 /hpf Urine Bacteria Few (2-10) H Ur Culture Indicated? Specimen cultured Vol Urine Centrifuged 10ml (spun) PFSH Social History household members: none Smoking Status: Never smoker alcohol intake: never Assessment & Plan Assessment & Plan narrative: 1. Gait instability with weakness and fall in a patient with recent hospitalization needing pacemaker for symptomatic bradycardia. Present on admission and active. 2. Symptomatic bradycardia status post pacemaker placement. Stable since discharge, pacemaker is functioning normally. 3. Orthostatic hypotension. Present on admission and persistent. Held her blood pressure meds yesterday and she remains quite orthostatic today in spite of this. 4. Hypertension. Present on admission and active. 5. Seizure disorder, on chronic lamotrigine. Plan: -she requires a 2nd midnight of hospital care for ongoing management of hypertension and profound orthostasis. -we will monitor blood pressures and orthostasis with reintroduction of amlodipine at 5 mg has a posterior usual 10 today. -continue PT, and OT evaluations. DVT prophylaxis will be with Lovenox Inpatient status, she requires a 2nd midnight of hospital level care. Time-Based Coding :: [TOTAL MINUTES] spent with patient and on the chart (including review of chart, obtaining history, exam, reviewing outside data, placing orders, documenting exam and treatment plan, and counseling patient) on [DATE].
--- NOTE | 2024-05-09 15:41 | CM.DANOTE ---
Initial DCP Assessment Note Pt is an 79 yo female, resident of [place], arrives after GLF with recent gait instability and weakness. Patient had a pace maker placed at [facility] recently. PCP: Unknown Payer: [facility] Supp. Reviewed chart, therapies recommending SNF and patient is agreeable. Met w/patient's DPOA Kristen Johnson and back up DPOA Clara Estevze (need contact info). Copies taken of patient's DPOA ppk. Patient's brother Fletcher is listed currently in chart; Kristen describes Fletcher as very fragile and unable to assist at this time. According to patient's friends/DPOA, patient has been living independently in her rental (condo) in [place] successfully, able to complete most ADLs indp. Friends have needed to increase their visits and contact with patient recently and hope she will agree to a lifeline soon. Patient has no children. Friend/DPOA Kristen requests SNF referral be sent to [facility] as their first choice and [facility] as the back up option. Patient has friends available in the [place] area to visit if she discharges to [facility]. Emailed this referral to [facility]umiko [email or web address], she is reviewing now. Plan: Discharge to SNF is anticipated. MCR ready for SNF 05/11. Likely via wheelchair van. Still to do: Referral to [facility] as a back up option. Complete PASRR. Review plan with patient and DPOA Kristen. CM team following closely for coordination of discharge plan. BRANDON Nassar Discharge Planning/Care Management CM Discharge Assessment Start: 05/09/24 15:26 Freq: Status: Active Protocol: Document 05/09/24 15:26 TOYA (Rec: 05/09/24 15:41 TOYA [id number]) Discharge Planning Assessment Assigned Rug Inspector Helper BRANDON Young DPANA/Assigned Designee Name luigi Ramirez Advance Directives? Yes Advance Directives on File Yes History Provided By Friend,Medical Record Prior Living Arrangements Apartment/Condo Household Members none Type of transporation used prior to Relies on Others admit Independent with ADL's Yes: Recent falls per friend Is patient alert and oriented? Yes: some confusion noted today Needs Assistance With Home Chores / Shopping Patient/Family Preference Longterm Facility Barriers to Discharge No Comment Once SNF is secured Discharge Plan Longterm Facility Transportation Arrangement Likely wheelchair van Referrals Initiated Longterm Additional Comment 1. [facility] (done) 2. [facility] (still need referral)
[2024-05-10] VITALS (8 sets, daily range): BP systolic 106–184; BP diastolic 58–87; PULSE 58–87; RESP 14–18; TEMP 36.2–36.7; O2SAT 94–98
--- NOTE | 2024-05-10 09:01 | P.PN_ITS ---
Subjective Subjective Interval history: Summary: This is pleasant patient was admitted with episodes of presyncope. She was found to be extremely orthostatic. Her blood pressure meds were held on May 08. She remains very orthostatic this morning despite IV fluids. Therapies are recommended rehabilitation stay at [facility], she was in agreement. Subjective: She was doing well today. Her blood pressure did go high yesterday and she was somewhat concerned. She denies any orthostatic symptoms today and did little bit better with physical therapy. No nausea, or chest pain. Exam Vital Signs (past 8 hours): - 05/10/24 02:10 05/10/24 02:11 05/10/24 03:00 Temperature 97.8 F Pulse Rate 62 Respiratory Rate 18 Blood Pressure 179/83 H 182/87 H 168/81 H Pulse Oximetry 97 Oxygen Flow Rate 05/10/24 08:00 Temperature 97.1 F L Pulse Rate 87 Respiratory Rate 16 Blood Pressure 184/84 H Pulse Oximetry 98 Oxygen Flow Rate 0 Oxygen Delivery Method Room Air Oxygen Flow Rate 0 Narrative Exam Narrative: NAD, alert and oriented. Fluent speech. Lungs are clear, normal rate and effort. Heart is regular, no murmur gallop or rub. Abdomen is soft, non distended. Extremities are free of edema. Objective Labs 05/09/24 03:47 05/09/24 03:47 PFS Social History household members: none Smoking Status: Never smoker alcohol intake: never Assessment & Plan Assessment & Plan narrative: 1. Gait instability with weakness and fall in a patient with recent hospitalization needing pacemaker for symptomatic bradycardia. Present on admission and active. 2. Recent pacemaker placement. Stable since discharge, pacemaker is functioning normally. 3. Orthostatic hypotension. Present on admission and active. 4. Hypertension. Present on admission and active. 5. Seizure disorder, on chronic lamotrigine. Plan: -we will monitor blood pressures and orthostasis with increasing amlodipine to 5mg. -continue PT, and OT evaluations. -Add lisinopril 5 mg today MARCUS: [facility] on May 11. Time-Based Coding :: [TOTAL MINUTES] spent with patient and on the chart (including review of chart, obtaining history, exam, reviewing outside data, placing orders, documenting exam and treatment plan, and counseling patient) on [DATE].
[2024-05-10] MEDS: lamoTRIgine 100 MG TABLET 300 MG PO ×3 (09:14→21:51)
[2024-05-10] MEDS: ENOXAPARIN 40 MG/0.4 ML SYRINGE SUBCUT (09:14)
[2024-05-10] MEDS: DOXYCYCLINE HYCLATE 100 MG TABLET PO ×2 (09:14→21:51)
[2024-05-10] MEDS: SODIUM CHLORIDE 0.9% FLUSH 10 ML IV ×2 (09:14→21:51)
[2024-05-10] MEDS: AMLODIPINE 5 MG TABLET 10 MG PO (09:14)
--- NOTE | 2024-05-10 10:59 | CM.DPNOTE ---
Addendum entered by BRANDON rToy 05/10/24 14:41: INSURANCE EXAMINING CLERK completed PASRR, behind FS SL Original Note: DCP Note INSURANCE EXAMINING CLERK reviewed EMR Per hospitalist in morning rounds, medically stable to dc whenever. Per chart, 3rd midnight would qualify her for SNF tomorrow, 05/11/24. Per Yumiko at [facility], can accept pt whenever tomorrow but do not have transport available. Schedule with [facility] and they will pay INSURANCE EXAMINING CLERK spoke with dispatch from [facility], scheduled for p/u at 11am tomorrow. INSURANCE EXAMINING CLERK spoke with DAISHA Peterson (p [phone]) and updated her on plan. Confirm agreement with plan, will meet pt at [facility] tomorrow and bring her clothes. INSURANCE EXAMINING CLERK met with pt in room, updated on plan. Confirm agreement/preference with plan. Deny questions. PASRR needed P: dc tomorrow to [facility] via [facility] at 11am. CM team will continue to follow closely BRANDON Troy
--- NOTE | 2024-05-10 11:56 | PT-IP ANOTE ---
Pt currently with OT. PT will attempt to see later.
--- NOTE | 2024-05-10 12:10 | OT.IP.TRT ---
Current Diagnoses Other abnormalities of gait and mobility (05/07/24) Occupational Therapy Treatment Note M2 OT-IP Current Condition Start: 05/08/24 15:09 Freq: Status: Active Protocol: Document 05/08/24 15:09 CGR (Rec: 05/08/24 15:24 CGR [id number]) Occupational Therapy Current Condition Current Condition Evaluation Date 05/08/24 Treatment Diagnosis sudden onset vomiting then fall, down ~6 hours. Diagnosis Onset Date 05/07/24 M3 OT- IP Subjective and Pain Start: 05/08/24 15:09 Freq: Status: Active Protocol: Document 05/10/24 12:12 CCC (Rec: 05/10/24 12:17 CCC [id number]) OT- Subjective Occupational Therapy Visit Type Type Treatment Note Visit Start Time 11:36 Visit Stop Time 12:10 Occupational Therapy Visit Comments Patient Comments Pt wanting to try to use the 4ww to walk. Patient/Caregiver Goals Pt now open to going to skilled rehab. OT Pain Assessment Pain When Pain Assessed At Rest Pain Present Pain Present Denied Pain M5 OT- IP IADL's Start: 05/08/24 15:09 Freq: Status: Active Protocol: Document 05/08/24 15:09 CGR (Rec: 05/08/24 15: CGR [id number]) OT-Instrumental Activities of Daily Living Deficits IADL Deficits Identified No Deficits Home Safety Awareness Awareness of Need for Assistance at Home Good Awareness Ability to Problem Solve Emergency Able to Problem Solve Situations Medication Management Medication Management No Deficits Identified Money Management Money Management No Deficits Identified Meal Preparation Meal Preparation No Deficits Identified Seam Rubbing Machine Operator Seam Rubbing Machine Operator No Deficits Identified Driving Driving Concerns Identified Regarding Safety M6 OT- IP Functional Cognition Start: 05/08/24 15:09 Freq: Status: Active Protocol: Document 05/10/24 12:12 CCC (Rec: 05/10/24 12:17 [facility] [id number]) Cognitive Factors Limiting Selfcare Function Cognitive Comments Cognitive Assessment Comments Intact, occasional VC to keep the walker in front of her at all times. Able to go over at length of safety in the bathroom and IADL needs that she may have difficulty at home - vacuuming, taking out the garage, etc. M7 OT- IP Mobility and Balance Start: 05/08/24 15:09 Freq: Status: Active Protocol: Document 05/10/24 12:12 CCC (Rec: 05/10/24 12:17 [facility] [id number]) OT-Transfer Assessment Sit to and From Stand Sit to and from Stand Standby Assistance Transfers Transfer Ability Standby Assistance Technique Transfer Destination Chair Devices Transfer Assistive Devices Gait Belt,Front Wheeled Walker ,4 Wheeled Walker Comments Mobility Comments Pt stable when sitting and standing and not symptomatic. Able to try 4ww and pt much steadier at the end of rachel session with SBA. OT- Balance Assessment Sitting Balance and Reactions Static Sitting Balance Ability Normal Dynamic Sitting Balance Ability Good Standing Balance and Reactions Static Standing Balance Ability Good Dynamic Standing Balance Ability Fair+ M8 OT- IP Objective Assessments Start: 05/08/24 15:09 Freq: Status: Active Protocol: Document 05/08/24 15:09 CGR (Rec: 05/08/24 15:24 CGR [id number]) OT Gross Range of Motion Upper Extremity Range of Motion Assessment Within Functional Limits ROM Impairments LUE restrictions from recent pacer placement (05/02) OT Strength Upper Extremity Strength Assessment Within Functional Limits Comments Strength Comments arms and hands 4/5 OT- Coordination Assessment Upper Extremity Finger to Nose Test Within Functional Limits Finger Tapping Test Within Functional Limits OT-Muscle Tone Assessment Muscle Tone WNL Yes OT Sensation Assessment Edema Edema Absent M9 OT- IP Assessment and Plan Start: 05/08/24 15:09 Freq: Status: Active Protocol: Document 05/10/24 12:12 [facility] (Rec: 05/10/24 12:17 [facility] [id number]) OT Summary Assessment and Plan Potential Rehabilitation Potential Good Analytic Complexity at Evaluation Low Summary OT Impairments Functional Mobility,Toileting, Bathing,Toilet Transfers, Shower Transfers,Activity Tolerance Progress Towards Goals Progressing Toward Goals Assessment Summary Pt able to trial 4ww in the hallway and able to go over IADL difficulties at home. Pt to go to skilled rehab when medically stable. Goals Grooming Goal Independent Dressing Goal Independent Toileting Goal Independent Bathing Goal Independent Toilet Transfer Goal Independent Shower Transfer Goal Independent Patient/Caregiver Education Goal Demonstrate Energy Conservation and Pacing Days to Meet Goals 14 Frequency of Treatment Other frequency 5x per week Treatment Plan OT Treatment Plan ADL Training,Functional Mobility,Patient/Family Education,Discharge Planning Discharge Recommendations OT Discharge Recommendations SNF Rehab Transportation Needs at Discharge Wheelchair/Cabulance
--- NOTE | 2024-05-10 15:40 | PT.IPTN ---
Current Diagnoses Other abnormalities of gait and mobility (05/07/24) Physical Therapy Treatment Note M2 PT-IP Current Condition Start: 05/08/24 07:14 Freq: NEEDED Status: Active Protocol: Document 05/08/24 07:15 MB (Rec: 05/08/24 07:42 MB [id number]) Physical Therapy Current Condition Current Condition Evaluation Date 05/08/24 Treatment Diagnosis Falls, orthostatic with PT M3 PT-IP Subjective Start: 05/08/24 07:14 Freq: NEEDED Status: Active Protocol: Document 05/10/24 15:40 AB (Rec: 05/10/24 18:10 AB [id number]) Subjective Physical Therapy Visit Type Type Treatment Note Visit Start Time 15:40 Visit Stop Time 16:05 Number of LINTER TENDER Visits 0 Physical Therapy Visit Comments Patient Comments agreeable to do PT Therapy Pain Assessment Pain Present Pain Present Denied Pain M4 PT-IP Mobility and Gait Start: 05/08/24 07:14 Freq: NEEDED Status: Active Protocol: Document 05/10/24 15:40 AB (Rec: 05/10/24 18:10 AB [id number]) PT-Transfer Assessment Sit to and From Stand Sit to and from Stand Standby Assistance,1 Person Assistance,Use of Upper Extremities Equipment Transfer Assistive Device Gait Belt,Front Wheeled Walker Orthotic/Prosthetic Devices or Brace: No Comments Mobility Comments pt sitting on the chair and agreed to do PT. BP monitored . BP sittin/67. pt completed sit to stand SBA. BP checked: 96/68. pt stood up for ~ 2 more minutes and BP checked again: 106/58. no c/o dizziness. ambulated in room using FWW ~ 20 ft CGA and pt sat back on the chair. BP checked: 153/67. pt agreed to walk again. sit to stand from the chair SBA and ambulated in the hallway using FWW SBA to occasional CGA ~ 200 ft. pt ambulated back to the chair. BP checked seated after walkin/73. positioned pt on the chair. call light and table placed within reach. informed nurse regarding BP. Gait Assessment Gait Gait Assistance Required: Standby Assistance,Contact Guard Assist Distance (Feet) 200 Able to Maintain Weight Bearing Status Yes During Gait Assistive Devices Assistive Device Gait Belt,Front Wheeled Walker Orthotic/Prosthetic Devices or Brace: No Gait Deviations General Gait Pattern Decreased Stride Length, Decreased Feet Clearance,Step- to Gait Factors Limiting Gait Function Factors Limiting Gait Function Decreased Activity Tolerance, Poor Balance,Poor Safety Awareness M5 PT-IP Objective Assessments Start: 05/08/24 07:14 Freq: NEEDED Status: Active Protocol: Document 05/08/24 07:15 MB (Rec: 05/08/24 07:42 MB [id number]) Orientation Orientation/Cognition Level of Alertness Confusional State Orientation Name,Age,Birthday,Month,Year, Place Language Function Ability Hard of Hearing Safety Awareness Decreased Safety Awareness Comments Decreased history provided and this is partly d/t [facility] Gross Range of Motion Upper Extremity ROM Assessment Within Functional Limits Lower Extremity ROM Assessment Within Functional Limits Strength Comments Strength Comments Pt has trouble following all range and MMT commands d/t poor hearing, right great toe and ankle DF are minimally weaker than the left Coordination Assessment Assessment Coordination Comments Pt cannot follow coordination cues this morning Sensation Assessment Comments Sensation Comments Pt cannot follow sensory cues this morning M6 PT-IP Treatment Start: 05/08/24 07:14 Freq: NEEDED Status: Active Protocol: Document 05/10/24 15:40 AB (Rec: 05/10/24 18:10 AB [id number]) Physical Therapy Treatment Education Education Provided Safety M7 PT-IP Assessment and Plan Start: 05/08/24 07:14 Freq: NEEDED Status: Active Protocol: Document 05/10/24 15:40 AB (Rec: 05/10/24 18:10 AB [id number]) PT Summary Assessment and Plan Potential Rehabilitation Potential Good Summary Impairments Strength,Balance,Cognition, Transfers,Gait,Activity Tolerance Progress Towards Goals Slow Progress due to Medical Issues,Slow Progress due to Activity Tolerance Assessment Summary pt improving slowly with mobility. pt requiring SBA to CGA with mobility using FWW. pt with orthostatic hypotension but is asymptomatic with BP in sitting of 151/67 to 96/68 in standing. Goals Bed Mobility Goal Independent Transfer Goal Independent,Front Wheeled Walker Gait Goal Independent,Front Wheel Walker Gait Distance 100 Other Goals Pt will ascend and descend 1 step with LRAD and no more than CGA to allow safe home entrance. Days to Meet Goals 10 Frequency of Treatment Frequency Of Treatment Once a Day Treatment Plan Physical Therapy Treatment Plan Bed Mobility Training,Transfer Training,Gait Training, Therapeutic Exercise,Balance Retraining,Discharge Planning, Hot or Cold Pack,Neuromuscular Re-ed,Coordination Retraining ,Manual Therapy Precautions Other Precautions BP Recommendations To Nursing Amount of Assist Needed 1 Person Assist Discharge Recommendations PT Discharge Recommendations Home vs SNF Transportation Needs at Discharge Private Vehicle,Wheelchair/ Cabulance
[2024-05-10] MEDS: LOSARTAN 25 MG TABLET PO (15:41)
[2024-05-11] VITALS: BP 181/83; PULSE 61; RESP 14; TEMP 36.8; O2SAT 94
[2024-05-11 04:00] VITALS: BP 158/69; PULSE 60; RESP 16; TEMP 36.7; O2SAT 95
[2024-05-11 08:00] VITALS: BP 165/77; PULSE 85; RESP 16; TEMP 36.2; O2SAT 98
[2024-05-11 08:06] LABS: Hematocrit 43.4 % (36-46); Hemoglobin 14.4 g/dL (12.0-16.0); Mean Corpuscular HGB Conc 33.2 % (30-36); Mean Corpuscular Hemoglobin 29.9 PG (26-34); Mean Corpuscular Volume 89.9 fL (80-100); Platelet Count 319 X10^3/uL (150-400); Red Blood Cell Count 4.82 X10^6/uL (4.0-5.2); Red Cell Distribution Width 14.1 % (11.6-14.8); White Blood Cell Count 6.4 X10^3/uL (4.5-11.0)
[2024-05-11 08:14] LABS: BUN Creatinine Ratio 26.9 (6-22); Blood Urea Nitrogen 25 mg/dL (7-17); Calcium 9.9 mg/dL (8.4-10.2); Carbon Dioxide 27 mmol/L (22-32); Chloride 103 mmol/L (98-107); Estimated Glomerular Filt Rate > 60 mL/min (>60); Glucose 99 mg/dL (80-110); HEMOLYSIS < 15 (0-50); Potassium 4.4 mmol/L (3.4-5.1); Sodium 137 mmol/L (137-145)
[2024-05-11] MEDS: lamoTRIgine 100 MG TABLET 300 MG PO (08:58)
[2024-05-11] MEDS: AMLODIPINE 5 MG TABLET 10 MG PO (08:58)
[2024-05-11 08:59] VITALS: BP 166/77; PULSE 62
[2024-05-11] MEDS: LOSARTAN 25 MG TABLET PO (08:59)
[2024-05-11] MEDS: DOXYCYCLINE HYCLATE 100 MG TABLET PO (08:59)
[2024-05-11] MEDS: ENOXAPARIN 40 MG/0.4 ML SYRINGE SUBCUT (08:59)
--- NOTE | 2024-05-11 09:15 | PM.DS.1 ---
History of Present Illness History of Present Illness Chief complaint: GLF/down since noon/ no inj Narrative: From night doctor: 79 years old female with a past medical history of cardiac arrhythmia/symptomatic bradycardia status post pacemaker placement with recent hospitalization, hypertension and multiple other medical issues was brought to the emergency room for generalized weakness with multiple falls. Patient was bruising on line when she had a sudden bout of vomiting with no dizziness or loss of consciousness. Reports her p.o. intake has been poor since her recent hospitalization and denies any fever or chest pain. No shortness of breath. She was weak and not sure if she lost consciousness but was on the floor probably for 5 to 6 hours due to significant weakness and eventually was able to work over to a carpeted area and EMS was called. Denies any constipation or diarrhea. No bladder issues. In the emergency room, patient was paced appropriately and the pacemaker was interrogated. Vitals showed a blood pressure 136/67 with a pulse in the 60s and the O2 saturation of 95%. Labs showed a WBC of 9.0 with a hemoglobin of 14.8 and a platelet count of 316. Sodium is 136 with a BUN of 18 creatinine of 0.79 and a blood sugar of 130. AST/ALT is 52/37 with a BNP of 440. Calcium is 9.7 with a lipase of 47/normal CPK. Chest x-ray shows no acute process and that shows mild right basilar opacities secondary to atelectasis/aspiration. Patient was initiated on IV fluids and admitted for further evaluation. Additional information: She lives alone in [facility]. She was 2 close friends who are her social network. She was no family members other than an older brother who is not very involved. She was episodes of anxiety. She also has a tremor, this appears to be new. She had a pacemaker placed at [facility] less than a week ago. This appears to be functioning. She was orthostatic in the ED and then hypotensive and improved with a 500 mL bolus of saline. She does not really give a history of having dizziness with standing or walking. She does live alone, in the [facility]. She uses a walker. She was had home health at her place before including PT and OT. They did a lot of modifications for safety as well as removing rugs. She denies any chest pain, or recent fevers, chills, or cough. No leg swelling. Her 2 friends are also power of assistant county attorney for healthcare. They are concerned about her medication compliance. Discharge Providers Provider Date of admission: 05/07/24 21:32 Discharge Date: 05/11/24 Primary care physician: Doctor Patti MD Consults: 05/07/24 23:22 Consult to General Surgery Routine Comment: Consulting Provider: Ria Spaulding Reason for consultation: Distended small bowel Has provider been notified: Yes 05/08/24 02:12 Consult to Occupational Therapy Evaluate & Treat Comment: Physician Instructions: Evaluate and treat Consult to Physical Therapy Evaluate & Treat Comment: Physician Instructions: Evaluate and Treat 05/08/24 05:30 Consult to Physical Therapy Evaluate & Treat Comment: Physician Instructions: Evaluate and Treat Discharge provider: Kenny Burris MD Summary Hospital Course Discharge Diagnosis: 1. Gait instability with weakness and fall in a patient with recent hospitalization needing pacemaker for symptomatic bradycardia. Present on admission and active. 2. Recent pacemaker placement. Stable since admission, pacemaker is functioning normally. 3. Orthostatic hypotension. Present on admission and improving. 4. Hypertension. Present on admission and active. 5. Seizure disorder, on chronic lamotrigine. Stable. Hospital Course: She was admitted with presyncopal episode. She had received a pacemaker 1 week before at [facility]. Her pacemaker impaired to be functioning normally while on telemetry here. She was found to have general debilitation with recommendations for rehabilitation from therapies as well as orthostatic hypotension. Her blood pressure medications were cut back to a degree and her diuretic was stopped. She had a low-dose of losartan added. The plan is to send her for rehabilitation and continue to monitor blood pressure and orthostatic hypotension which is mostly asymptomatic. Her lamotrigine is written as 300 t.i.d., she takes 1 pill every couple of hours so I have adjusted this to 200 mg 4 times a day. Status at Discharge Cognitive/behavioral status at discharge: oriented Functional status at discharge: uses cane/walker Overall status at discharge: patient is progressing back to baseline Time Spent with Patient Time spent: Greater than 30 minutes Exam Vital Signs (past 8 hours): - 05/11/24 04:00 05/11/24 07:00 05/11/24 08:00 Temperature 98.1 F 97.1 F L Pulse Rate 60 85 Respiratory Rate 16 16 Blood Pressure 158/69 H 165/77 H Pulse Oximetry 95 98 Oxygen Delivery Method Room Air Oxygen Flow Rate 0 0 Oxygen Delivery Method Room Air Oxygen Flow Rate 0 Narrative Exam Narrative: NAD, alert and oriented. Fluent speech. Lungs are clear, normal rate and effort. Heart is regular, no murmur gallop or rub. Abdomen is soft, non distended. Extremities are free of edema. Objective Labs 05/11/24 07:49 05/11/24 07:49 Labs: Laboratory Results - last 24 hr 05/11/24 07:49 WBC 6.4 RBC 4.82 Hgb 14.4 Hct 43.4 MCV 89.9 MCH 29.9 MCHC 33.2 RDW 14.1 Plt Count 319 Sodium 137 Potassium 4.4 Chloride 103 Carbon Dioxide 27 BUN 25 H Creatinine 0.93 Estimated GFR > 60 BUN/Creatinine Ratio 26.9 H Glucose 99 Calcium 9.9 PFSH Social History household members: none Smoking Status: Never smoker alcohol intake: never Discharge Assessment & Plan Assessment and Plan Assessment: 1. Gait instability with weakness and fall in a patient with recent hospitalization needing pacemaker for symptomatic bradycardia. Present on admission and active. 2. Recent pacemaker placement. Stable since admission, pacemaker is functioning normally. 3. Orthostatic hypotension. Present on admission and improving. 4. Hypertension. Present on admission and active. 5. Seizure disorder, on chronic lamotrigine. Stable. Plan of Treatment: Discharge to [facility] facility, close follow up with [facility] facility provider. We will continue to monitor her blood pressure and titrate losartan as needed. We will also monitor her orthostatic hypotension and pursue rehabilitation with PT and OT. Discharge Plan Discharge Plan Patient Disposition: SNF Transfer to: [facility] Under care of provider: SNF doctor Provider Discharge Comment: Stable for discharge to [facility] for rehabilitation efforts and blood pressure and orthostatic hypotension monitoring. Discharge orders & Medications Prescriptions: New losartan 25 mg Tablet 25 mg PO DAILY Qty: 30 1RF lamotrigine 200 mg tablet 200 mg PO QID Qty: 120 0RF Continued amlodipine 10 mg tablet 10 mg PO DAILY Discontinued lamotrigine 100 mg tablet 300 mg PO 3XD spironolactone 25 mg tablet 25 mg PO BID Medication counseling provided by Pharmacist: No Follow up/Referrals: Miscellaneous,DoctorMD [Primary Care Provider] - Discharge Health Status Multidrug resistant organism: No MDRO Diet/Activity/Treatments Diet: Regular Activity: As tolerated. Monitor orthostatic hypotension on a twice a day basis. Special Rehabilitation Services Reason for rehabilitation: Recovery r/t decondition Rehab type: Physical therapy and Occupational therapy Visit Report/Discharge Packet Stand Alone Forms: Patient Portal/API Discharge Data Primary Care Provider: Miscellaneous,Doctor
[2024-05-11] MEDS: lamoTRIgine 100 MG TABLET 200 MG PO (11:49)
--- NOTE | 2024-05-11 12:45 | CM.DPNOTE ---
DC Note Patient has been discharged to [facility]. Patient and friend Kristen remain aware and agreeable to plan. Placed call to [facility] and they have no record of this transport being arranged. Placed call to [employer] to see if the company had been documented in error, no record of transport. Placed call to Yumiko at [facility], updated with discharge order. SAMEERA Dale, emailed the DC ppk and PASRR to Yumiko. Updated on transport tay and Yumiko understanding, made another call to [facility] and arranged transport for 1230 oyster picker. RN updated with transport time and nurse report number. Plan: Discharge to [facility]. TOYA
== END 2024-05-11 12:35 | DRG 312 ==
LOC: ED 21:31 → AC 22:13 → ICU 05-08 11:44 → AC 05-08 12:06 → ICU 05-08 12:06
PROVIDERS: Hospitalist; Admitting Provider Internal Medicine; Emergency Provider Emergency Medicine; Referring Provider Emergency Medicine; Visit Provider Internal Medicine
DX: I95.1 Orthostatic hypotension (principal); R53.1 Weakness; E86.0 Dehydration; R26.89 Other abnormalities of gait and mobility; R42 Dizziness and giddiness; J01.00 Acute maxillary sinusitis, unspecified; G40.909 Epilepsy, unspecified, not intractable, without status epilepticus; I10 Essential (primary) hypertension; R00.1 Bradycardia, unspecified; W18.30XA Fall on same level, unspecified, initial encounter; Z95.0 Presence of cardiac pacemaker; Z91.81 History of falling
CPT/HCPCS: 36415; 70450; 71045; 80048; 80053; 81001; 82550; 82962; 83690; 83735; 83880; 84484; 85025; 85027; 87086; 93005; 96360; 96361; 97116; 97161; 97165; 97530; 97535; 99284; 99285; J1650

== ENCOUNTER 2024-05-25 15:22 | Emergency (ER) | payer MEDICARE, OTHER, SELFPAY ==
[2024-05-08 14:56] VITALS: BMI 35.4
[2024-05-25] VITALS (17 sets, daily range): BP systolic 157–195; BP diastolic 70–139; PULSE 60–68; RESP 9–20; TEMP 36.4; O2SAT 96–100; BMI 29.0
--- NOTE | 2024-05-25 15:54 | EKG_ITS ---
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
[2024-05-25 16:28] LABS: Add Manual Diff / Slide Review NO; Basophils Absolute Auto 0 /uL (0-100); Basophils Percent Auto 0.5 % (0-2); Eosinophils Absolute Auto 0 /uL (0-450); Eosinophils Percent Auto 0.4 % (2-4); Hematocrit 41.4 % (36-46); Hemoglobin 13.9 g/dL (12.0-16.0); Lymphocytes Absolute Auto 800 /uL (1100-4500); Lymphocytes Percent Auto 10.9 % (25-40); Mean Corpuscular HGB Conc 33.5 % (30-36); Mean Corpuscular Hemoglobin 30.4 PG (26-34); Mean Corpuscular Volume 90.9 fL (80-100); Monocytes Absolute Auto 600 /uL (0-900); Monocytes Percent Auto 8.9 % (3-14); Neutrophils Absolute Auto 5800 /uL (1500-7000); Neutrophils Percent Auto 79.3 % (50-75); Platelet Count 275 X10^3/uL (150-400); Red Blood Cell Count 4.56 X10^6/uL (4.0-5.2); Red Cell Distribution Width 13.7 % (11.6-14.8); White Blood Cell Count 7.3 X10^3/uL (4.5-11.0)
[2024-05-25 16:32] LABS: Alanine Aminotransferase 16 IU/L (<35); Albumin 4.5 g/dL (3.5-5.0); Albumin Globulin Ratio 1.6 (1.0-2.8); Alkaline Phosphatase 84 U/L (38-126); Aspartate Aminotransferase 29 IU/L (14-36); BUN Creatinine Ratio 22.2 (6-22); Bilirubin Total 0.5 mg/dL (0.2-1.3); Blood Urea Nitrogen 20 mg/dL (7-17); Calcium 9.7 mg/dL (8.4-10.2); Carbon Dioxide 26 mmol/L (22-32); Chloride 102 mmol/L (98-107); Creatine Kinase 49 U/L (30-135); Estimated Glomerular Filt Rate > 60 mL/min (>60); Globulin 2.8 g/dL (1.7-4.1); Glucose 132 mg/dL (80-110); HEMOLYSIS < 15 (0-50); Lipase 62 U/L (23-300); Potassium 4.2 mmol/L (3.4-5.1); Sodium 136 mmol/L (137-145); Total Protein 7.3 g/dL (6.3-8.2)
[2024-05-25 16:43] LABS: Troponin I < 0.012 ng/mL (0.01-0.034)
--- NOTE | 2024-05-25 17:58 | DI.CT.S_ITS ---
PROCEDURE: CT HEAD/BRAIN WO CON INDICATIONS: headache and HTN TECHNIQUE: Noncontrast 4.5 mm thick angled axial sections acquired from the foramen magnum to the vertex, with coronal and sagittal reformats. For radiation dose reduction, the following was used: automated exposure control, adjustment of mA and/or kV according to patient size. COMPARISON: [facility], CT, CT HEAD/BRAIN WO CON, 05/06/2024, 19:38. FINDINGS: Image quality: Diagnostic. CSF spaces: Basal cisterns are patent. No extra-axial fluid collections. The ventricles are symmetric in size and shape. Brain: No intracranial bleeds or masses. There is cerebral volume loss for age, with resultant ventricular and sulcal prominence. Small cortical volume loss in the right temporoparietal region, present previously. There are periventricular and deep white matter chronic small vessel ischemic changes. There is intracranial internal carotid artery atherosclerosis. Skull and face: Calvarium and visualized facial bones appear intact, without suspicious lesions. Sinuses: Mucosal thickening at the right maxillary sinus base. Visualized sinuses and mastoids are otherwise clear. IMPRESSION: No acute intracranial pathology. Age-appropriate cerebral cortical volume loss and chronic microvascular ischemic changes. Dictated by: Zaynab Schaefer M.D. on 05/25/2024 at 19:10 Approved by: Zaynab Schaefer M.D. on 05/25/2024 at 19:11
--- NOTE | 2024-05-25 18:15 | DI.CT.S_ITS ---
PROCEDURE: CT CERVICAL SPINE WO CON INDICATIONS: neck pain TECHNIQUE: Noncontrast 3 mm thick sections acquired from the skull base to the T4 level. Sagittal and coronal reformats were then constructed. For radiation dose reduction, the following was used: automated exposure control, adjustment of mA and/or kV according to patient size. COMPARISON: [facility], CT, CT ANGIO HEAD AND NECK, 05/01/2024, 14:53. FINDINGS: Image quality: Diagnostic Bones: No acute fractures or dislocations. No acute compression fractures of the vertebral bodies. Craniocervical junction is intact. C1-C2 relationship is preserved. Visualized superior ribs are intact. Stable appearance of moderate multilevel cervical spondylosis. Stable appearance of anterolisthesis of C7 on T1 as well as C3 on C4 and C4 on C5. Soft tissues: Prevertebral soft tissues are normal in thickness. No paravertebral hematomas. No apical pneumothoraces. IMPRESSION: CT cervical spine without acute fracture or traumatic malalignment. Stable alignment of the cervical spine with anterolisthesis of C7 on T1, C3 on C4, and C4 on C5. Dictated by: Walter Silva M.D. on 05/25/2024 at 20:03 Approved by: Walter Silva M.D. on 05/25/2024 at 20:06
[2024-05-25 19:43] LABS: Creatine Kinase 46 U/L (30-135)
[2024-05-25 19:56] LABS: Troponin I < 0.012 ng/mL (0.01-0.034)
--- NOTE | 2024-05-25 20:20 | ED_ITS ---
HPI - General Adult General Chief complaint: Dizziness Stated complaint: Dizziness; R sided neck pain Time Seen by Provider: 05/25/24 17:25 Source: patient Mode of arrival: EMS Limitations: no limitations History of Present Illness HPI narrative: Patient is an 79-year-old female. Has a history of hypertension. He was also had a history of dizziness. States she was recently discharged from rehab facility because of the dizziness and balance issues. She was at home today. She stated that when she tried to get up from her chair and use her walker she became dizzy. He was not a room spinning sensation she just felt like she was leaning to 1 side and could not stop herself. She did not fall but did support herself with the wall. Did not hit her head. No loss of consciousness. She also reports that her blood pressure has been elevated. She also has right- sided neck discomfort. She reports no extremity injuries. No chest pain. No shortness of breath. She states she has had a decrease in hearing in her right ear but this has been over the past several months if not longer. Related Data Home Medications Medication Instructions Recorded Confirmed amlodipine 10 mg tablet 10 mg PO DAILY 05/08/24 05/08/24 Previous Rx's Medication Instructions Recorded lamotrigine 200 mg tablet 200 mg PO QID #120 tabs 05/11/24 losartan 25 mg tablet 25 mg PO DAILY #30 tabs 05/11/24 Allergies Allergy/AdvReac Type Severity Reaction Status Date / Time Penicillins Allergy Severe Rash Verified 05/25/24 15:30 cephalexin Allergy Unknown Verified 05/25/24 15:30 diazepam Allergy Unknown Verified 05/25/24 15:30 esomeprazole Allergy Unknown Verified 05/25/24 15:30 lisinopril Allergy Unknown Verified 05/25/24 15:30 Review of Systems Review of Systems ROS Unobtainable: All systems reviewed & are unremarkable except as noted in HPI and below Patient History Social History household members: none Smoking Status: Never smoker alcohol intake: never Smoking Status: Never smoker Substance Use Type: does not use Exam Initial Vital Signs Initial Vital Signs: Vital Signs Temperature 97.6 F 05/25/24 15:22 Pulse Rate 62 05/25/24 15:22 Respiratory Rate 14 05/25/24 15:22 Blood Pressure 157/72 H 05/25/24 15:22 Pulse Oximetry 97 05/25/24 15:22 Oxygen Delivery Method Room Air 05/25/24 15:22 Const General: cooperative, comfortable and No ill appearing HENMT Head: normal to inspection and normocephalic Face and sinus: normal facial exam Resp Effort & Inspection: normal respiratory effort Auscultation: clear to auscultation bilaterally Cardio Rate: regular rate Rhythm: regular rhythm GI Inspection: normal to inspection Palpation: soft and No tender Skin General: no rashes or lesions noted Neuro General: patient alert, patient awake and moves all extremities Extrem General: capillary refill normal Course Orders Ordered: ED Orders 05/25/24 17:58 CT head/brain wo con Stat 05/25/24 18:15 CT cervical spine wo con Stat 05/25/24 19:16 Troponin & CK Cardiac Panel Stat Vital Signs Vital signs: Vital Signs - 8 hr 05/25/24 17:30 05/25/24 17:30 05/25/24 18:00 Pulse Rate 60 68 Respiratory Rate 18 20 Blood Pressure 180/77 H Pulse Oximetry 98 98 05/25/24 18:02 05/25/24 18:02 05/25/24 18:25 Pulse Rate 62 60 Respiratory Rate 20 12 Blood Pressure 167/139 H Pulse Oximetry 99 98 05/25/24 18:25 05/25/24 18:30 05/25/24 18:30 Pulse Rate 60 Respiratory Rate 9 L Blood Pressure 175/72 H 163/73 H Pulse Oximetry 97 05/25/24 19:00 05/25/24 19:00 05/25/24 19:30 Pulse Rate 60 60 Respiratory Rate 19 19 Blood Pressure 170/70 H Pulse Oximetry 97 97 05/25/24 19:30 05/25/24 19:45 05/25/24 19:45 Pulse Rate 60 Respiratory Rate 20 Blood Pressure 195/79 H 166/70 H Pulse Oximetry 97 05/25/24 19:52 05/25/24 20:00 05/25/24 20:00 Pulse Rate 61 Respiratory Rate 17 Blood Pressure 166/70 H 162/76 H Pulse Oximetry 96 Medical Decision Making Lab Data Lab results reviewed: Yes I reviewed the patient's lab results. 05/25/24 16:07 05/25/24 16:07 Labs: Lab Results 05/25/24 05/25/24 Range/Units 16:07 19:16 WBC 7.3 (4.5-11.0) X10^3/uL RBC 4.56 (4.0-5.2) X10^6/uL Hgb 13.9 (12.0-16.0) g/dL Hct 41.4 (36-46) % MCV 90.9 (80-100) fL MCH 30.4 (26-34) PG MCHC 33.5 (30-36) % RDW 13.7 (11.6-14.8) % Plt Count 275 (150-400) X10^3/uL Neut % (Auto) 79.3 H (50-75) % Lymph % (Auto) 10.9 L (25-40) % [place] % (Auto) 8.9 (3-14) % Eos % (Auto) 0.4 L (2-4) % Baso % (Auto) 0.5 (0-2) % Neut # (Auto) 5800 (5053-1066) /uL Lymph # (Auto) 800 L (4621-5284) /uL [place] # (Auto) 600 (0-900) /uL Eos # (Auto) 0 (0-450) /uL Baso # (Auto) 0 (0-100) /uL Sodium 136 L (137-145) mmol/L Potassium 4.2 (3.4-5.1) mmol/L Chloride 102 (98-107) mmol/L Carbon Dioxide 26 (22-32) mmol/L BUN 20 H (7-17) mg/dL Creatinine 0.90 (0.52-1.04) mg/dL Estimated GFR > 60 (>60) mL/min BUN/Creatinine Ratio 22.2 H (6-22) Glucose 132 H (80-110) mg/dL Calcium 9.7 (8.4-10.2) mg/dL Total Bilirubin 0.5 (0.2-1.3) mg/dL AST 29 (14-36) IU/L ALT 16 (<35) IU/L Alkaline Phosphatase 84 (38-126) U/L Total Creatine Kinase 49 46 (30-135) U/L Troponin I < 0.012 < 0.012 (0.01-0.034) ng/mL Total Protein 7.3 (6.3-8.2) g/dL Albumin 4.5 (3.5-5.0) g/dL Globulin 2.8 (1.7-4.1) g/dL Albumin/Globulin Ratio 1.6 (1.0-2.8) Lipase 62 (23-300) U/L Imaging Data CT scan - head: Radiologist's Impression: PROCEDURE: CT HEAD/BRAIN WO CON INDICATIONS: headache and HTN TECHNIQUE: Noncontrast 4.5 mm thick angled axial sections acquired from the foramen magnum to the vertex, with coronal and sagittal reformats. For radiation dose reduction, the following was used: automated exposure control, adjustment of mA and/or kV according to patient size. COMPARISON: [facility], CT, CT HEAD/BRAIN WO CON, 05/06/2024, 19:38. FINDINGS: Image quality: Diagnostic. CSF spaces: Basal cisterns are patent. No extra-axial fluid collections. The ventricles are symmetric in size and shape. Brain: No intracranial bleeds or masses. There is cerebral volume loss for age, with resultant ventricular and sulcal prominence. Small cortical volume loss in the right temporoparietal region, present previously. There are periventricular and deep white matter chronic small vessel ischemic changes. There is intracranial internal carotid artery atherosclerosis. Skull and face: Calvarium and visualized facial bones appear intact, without suspicious lesions. Sinuses: Mucosal thickening at the right maxillary sinus base. Visualized sinuses and mastoids are otherwise clear. IMPRESSION: No acute intracranial pathology. Age-appropriate cerebral cortical volume loss and chronic microvascular ischemic changes. CT - cervical spine: Radiologist's Impression: PROCEDURE: CT CERVICAL SPINE WO CON INDICATIONS: neck pain TECHNIQUE: Noncontrast 3 mm thick sections acquired from the skull base to the T4 level. Sagittal and coronal reformats were then constructed. For radiation dose reduction, the following was used: automated exposure control, adjustment of mA and/or kV according to patient size. COMPARISON: [facility], CT, CT ANGIO HEAD AND NECK, 05/01/2024, 14:53. FINDINGS: Image quality: Diagnostic Bones: No acute fractures or dislocations. No acute compression fractures of the vertebral bodies. Craniocervical junction is intact. C1-C2 relationship is preserved. Visualized superior ribs are intact. Stable appearance of moderate multilevel cervical spondylosis. Stable appearance of anterolisthesis of C7 on T1 as well as C3 on C4 and C4 on C5. Soft tissues: Prevertebral soft tissues are normal in thickness. No paravertebral hematomas. No apical pneumothoraces. IMPRESSION: CT cervical spine without acute fracture or traumatic malalignment. Stable alignment of the cervical spine with anterolisthesis of C7 on T1, C3 on C4, and C4 on C5. ECG Data Attestation: I personally reviewed and interpreted this ECG as follows: Interpretation: Atrially paced rhythm Ventricular rate is 60 MDM Narrative Medical decision making narrative: 2- troponins. Head CT is unremarkable. Cervical spine CT is unremarkable. She was paced on her EKG. She was not in heart failure. This is not ACS. No indication that this is CVA/TIA. She was had balance issues what she describes as dizziness for some time and she actually just left rehab in order to regain her strength and balance. States she did very well while at rehab which is why she was discharged. There was no indication for admission to the hospital today. Blood pressure improved without specific intervention here in the ER. Advised that she contact her primary care doctor for follow-up. We will hold on making any changes to her medications for now. She expressed understanding and agreement with plan. Discharge Plan Departure Patient Disposition: Home Clinical Impression: Dizziness Instructions: DI for Dizziness-Nonvertigo Activity Restrictions/Additional Instructions: I recommend that you continue to take all of your medications as directed. Please stay hydrated. Contact your primary doctor for a follow-up. Return to the emergency department for new or worsening symptoms. Prescriptions: No Action amlodipine 10 mg tablet 10 mg PO DAILY losartan 25 mg Tablet 25 mg PO DAILY Qty: 30 1RF lamotrigine 200 mg tablet 200 mg PO QID Qty: 120 0RF Referrals: Miscellaneous,DoctorMD [Primary Care Provider] - Stand Alone Forms: Patient Portal/API/Survey
== END 2024-05-25 21:15 | disposition home or self-care (01) ==
PROVIDERS: Emergency Medicine; Emergency Provider Emergency Medicine
DX: R42 Dizziness and giddiness (principal); R51.9 Headache, unspecified; I10 Essential (primary) hypertension; M54.2 Cervicalgia
CPT/HCPCS: 36415; 70450; 72125; 80053; 82550; 83690; 84484; 85025; 93005; 93010; 99283; 99284

== ENCOUNTER → 2025-07-17 14:18 | Outpatient (CLI) | payer MEDICARE, OTHER, SELFPAY ==
[2024-05-08 14:56] VITALS: BMI 35.4
--- NOTE | 2025-07-17 14:20 | DI.ECHO.S_ITS ---
[place] [facility]+ [facility] : : [address] : : [place] : : [address] : : Phone: [phone] Echocardiogram Report + + :Name: JENNY WILLARD Study Date: 07/17/2025 Height: 63 in : :[facility] ReadingLocation: Weight: 174 lb : : Gender: Female BSA: 1.8 m2 : :: 1945 Age: 80 yrs BP: 142/70 mmHg: :Reason For Study: Valvular heart disease : :Ordering Physician: MONA BRITTON Performed By: Candido Mcmahon : :Referring: MONA BRITTON : + + Interpretation Summary - Normal LV contractility with EF > 65% and no WMA. Mild cLVH. Normal diastolic function. - Normal RV contractility. - Normal chamber sizes. - No significant valvular abnormalities. - No obvious intracardiac shunts. - No obvious intracardiac masses/thrombi. - No hemodynamically significant pericardial effusion. - Low right sided filling pressures. Conclusion: Normal biventricular function without significant valvular abnormalities.. Procedure: A two-dimensional transthoracic echocardiogram with color flow and Doppler was performed. The study quality was technically adequate. There is no prior echocardiogram noted for this patient. The heart rate ranged between 60-63 bpm during the study. Left Ventricle: The left ventricle is normal in size. Left ventricular wall thickness is mildly increased. Left ventricular systolic function is normal. The ejection fraction is estimated to be 65-70%. There are no focal wall motion abnormalities. Normal diastolic function. Right Ventricle: The right ventricle is normal in size and function. Atria: The left atrial size is normal. Right atrial size is normal. There is no Doppler evidence for an interatrial shunt. Mitral Valve: There is mild to moderate mitral annular calcification. The mitral valve leaflets appear to open well. There is no mitral valve stenosis. There is trace mitral regurgitation. Aortic Valve: The aortic valve is trileaflet. There is mild aortic valve sclerosis. There is no aortic valve stenosis. No aortic regurgitation is present. Tricuspid Valve: The tricuspid valve is not well visualized, but is grossly normal. There is trace tricuspid regurgitation. The right ventricular systolic pressure is estimated to be at least 23 mmHg based on an estimated right atrial pressure of 3 mm Hg. Pulmonic Valve: The pulmonic valve is not well seen, but is grossly normal. There is trace pulmonic regurgitation. Great Vessels: The aortic root is normal size. There is aortic root sclerosis/calcification. The ascending aorta is normal in size. The aortic arch could not be visualized. The pulmonary artery is normal size. The IVC is of normal diameter and collapses greater than 50% with a sniff. This suggests a low right atrial pressure of 3 mm Hg. Pericardium/ Pleura There is no pericardial effusion. MMode/2D Measurements & Calculations LVIDd: 4.5 cm LVOT diam: 2.0 cm LVIDs: 3.0 cm Ao root diam: 3.3 cm FS: 32.4 % asc Aorta Diam: 3.2 cm IVSd: 1.1 cm LVPWd: 1.2 cm LV miller. diameter/BSA (cm/m^2): 2.5 LV sys. diameter/BSA (cm/m^2): 1.7 LA A2 area: 15.2 cm2 IVC diam: 0.69 cm LA A4 area: 14.0 cm2 LA length (vol): 4.7 cm LA vol: 38.6 ml LA vol index: 21.2 ml/m2 RVD1 (basal): 2.8 cm RVD2 (mid): 2.5 cm TAPSE: 2.3 cm Doppler Measurements & Calculations Ao V2 max: 181.0 cm/sec LVOT Max Hermelindo: 109.9 cm/sec Ao V2 mean: 111.9 cm/sec LV V1 max P.8 mmHg Ao max P.1 mmHg LV V1 VTI: 21.6 cm Ao mean P.0 mmHg EARL(I,D): 2.2 cm2 Ao V2 VTI: 30.7 cm EARL(V,D): 1.9 cm2 sev ratio: 0.71 EARL indexed to BSA (cm^2/m^2): 1.2 MV E max hermelindo: 69.9 cm/sec TR max hermelindo: 222.5 cm/sec MV A max hermelindo: 100.2 cm/sec TR max P.9 mmHg MV E/A: 0.70 PA V2 max: 116.4 cm/sec Med Peak E' Hermelindo: 5.7 cm/sec PA V2 mean: 83.1 cm/sec E/E' med: 12.3 PA mean P.1 mmHg Lat Peak E' Hermelindo: 6.4 cm/sec PA pr(Accel): 45.6 mmHg E/E' lat: 10.9 E/e' average: 11.6 MV dec time: 0.20 sec SV(LVOT): 66.5 ml Reading Physician:SHORTY
== END ==
PROVIDERS: PCP Nurse Practitioner Family; Referring Provider Internal Medicine; Visit Provider Internal Medicine
DX: I34.81 Nonrheumatic mitral (valve) annulus calcification (principal); I35.8 Other nonrheumatic aortic valve disorders
CPT/HCPCS: 93306